=== PATIENT | male | born 1955 | race Caucasian/White ===

== ENCOUNTER 2023-04-16 00:09 | Inpatient (IN) | payer MEDICARE ==
[2023-04-16] MEDS ORDERED: ACETAMINOPHEN TAB 500 MG TAB PO STA (00:43)
[2023-04-16] MEDS ORDERED: SODIUM CHLORIDE 0.9% 1,000 ML IV STA ×2 (00:43)
[2023-04-16 01:15] LABS: Basophils % (A) 0 %; Eosinophils # (A) 0.1 k/uL (0-0.7); Eosinophils % (A) 1 %; HCT 37.5 % (39.0-53.0); HGB 12.4 gm/dL (13.0-17.5); Lymphocytes # (A) 0.4 k/uL (1.0-4.8); Lymphocytes % (A) 5 %; MCH 32.8 pg (25.0-35.0); MCHC 33.2 g/dL (31.0-37.0); MCV 98.9 fL (80.0-100.0); Mean Platelet Volume 8.9; Monocytes # (A) 0.4 k/uL (0-1.0); Monocytes % (A) 6 %; Neutrophils # (A) 6.8 k/uL (1.3-7.7); Neutrophils % (A) 87 %; Platelet Count 107 k/uL (150-450); RBC 3.79 m/uL (4.30-5.90); RDW 14.1 % (11.5-15.5); WBC 7.8 k/uL (3.8-10.6)
[2023-04-16 01:34] LABS: ALT 15 U/L (4-49); AST 30 U/L (17-59); African American GFR (CKD) >90 (>60 ml/min/1.73 sqM); Albumin 3.7 g/dL (3.5-5.0); Alkaline Phosphatase 144 U/L (38-126); Anion Gap 9 mmol/L; Blood Urea Nitrogen 8 mg/dL (9-20); C Reactive Protein 2.7 mg/dL (<1.0); Carbon Dioxide 30 mmol/L (22-30); Chloride 90 mmol/L (98-107); Glucose 111 mg/dL (74-99); Non-African American GFR(CKD) 82 (>60 ml/min/1.73 sqM); Sodium 129 mmol/L (137-145); Total Protein 8.3 g/dL (6.3-8.2)
[2023-04-16 01:58] LABS: Amorphous Sediment,Urine Rare /hpf; Appearance,Urine Clear (Clear); Bilirubin,Urine Negative (Negative); Blood,Urine Small (Negative); Color,Urine Yellow; Glucose,Urine (UA) Negative (Negative); Hyaline Casts,Urine 7 /lpf (0-2); Ketones,Urine Negative (Negative); Leukocyte Esterase,Urine Negative (Negative); Mucus,Urine Rare /hpf; Nitrite,Urine Negative (Negative); Protein,Urine 2+ (Negative); RBC,Urine 17 /hpf (0-5); Specific Gravity,Urine 1.018 (1.001-1.035); Squamous Epithelial Cell,Urine 1 /hpf (0-4); WBC,Urine 1 /hpf (0-5)
[2023-04-16 01:59] LABS: Erythrocyte Sedimentation Rate 48 mm/hr (0-15)
[2023-04-16] MEDS ORDERED: IPRATROPIUM-ALBUTEROL 3 ML NEB INHALATION STA (02:12)
[2023-04-16] MEDS ORDERED: AMPICILLIN-SULBACTAM 3 GM in SODIUM CHLORIDE 0.9% 100 ML IVPB STA (02:18)
[2023-04-16] MEDS ORDERED: VANCOMYCIN IV PER PHARMACY 1 EACH MISC MISCELLANE PRN ×2 (02:18→05:56)
[2023-04-16] MEDS ORDERED: VANCOMYCIN 2,000 MG in SODIUM CHLORIDE 0.9% 500 ML 500 ML IVPB STA (02:26)
--- NOTE | 2023-04-16 03:12 | ED ---
General Adult HPI - General Chief complaint: Wound/Laceration Stated complaint: Infected Wound Left Leg Time Seen by Provider: 04/16/23 00:20 Source: EMS Mode of arrival: EMS Limitations: no limitations - History of Present Illness Initial comments: 67-year-old male with past medical history of COPD on 4 L home O2, chronic lower extremity wounds, A. fib on anticoagulation, hypertension who presents emergency department with some altered mental status. EMS and patient does provide the history. Patient is from [facility] however is in the area renting a cottage with his . called EMS because the patient had a fever. He does have chronic lower extremity wounds which have been weeping. States that he was just recently hospitalized a month ago for the wounds. Denies any current antibiotic use. states that he has been somewhat confused however he does answer questions appropriately for me. He denies any trauma. Did not t lay anything for the fever before coming into the emergency department. Denies any abdominal pain. No changes in his bowel or bladder habits. Denies headaches. Denies a cough or shortness of breath. No other alleviating, precipitating or modifying factors - Related Data Allergies Allergy/AdvReac Type Severity Reaction Status Date / Time lisinopril Allergy Cough Verified 04/16/23 02:28 Review of Systems ROS Statement: Those systems with pertinent positive or pertinent negative responses have been documented in the HPI. ROS Other: All systems not noted in ROS Statement are negative. Past Medical History Past Medical History: Atrial Fibrillation, COPD, Hyperlipidemia, Hypertension Past Surgical History: No Surgical Hx Reported Past Psychological History: No Psychological Hx Reported Smoking Status: Never smoker Past Alcohol Use History: None Reported Past Drug Use History: Marijuana General Exam Limitations: altered mental status General appearance: alert, in no apparent distress Head exam: Present: atraumatic, normocephalic, normal inspection Eye exam: Present: normal appearance, PERRL, EOMI. Absent: scleral icterus, conjunctival injection, periorbital swelling ENT exam: Present: mucous membranes dry Neck exam: Present: normal inspection. Absent: tenderness, meningismus, lymphadenopathy Respiratory exam: Present: wheezes Cardiovascular Exam: Present: regular rate, normal rhythm, normal heart sounds. Absent: systolic murmur, diastolic murmur, rubs, gallop, clicks GI/Abdominal exam: Present: soft, normal bowel sounds. Absent: distended, tenderness, guarding, rebound, rigid Extremities exam: Present: other (Bilateral lower extremities have significant swelling and brawny edema. There is an area of ulceration on the left posterior calf which is weeping. Extremities are malodorous. Patient does have less than 3 second cap refill) Neurological exam: Present: alert Psychiatric exam: Present: normal affect, normal mood Course Vital Signs 04/16/23 04/16/23 04/16/23 00:15 01:34 01:47 Temperature 101.2 F H 99.8 F H Pulse Rate 98 Respiratory 18 26 H Rate Blood Pressure 147/92 O2 Sat by Pulse 98 98 Oximetry 04/16/23 04/16/23 04/16/23 02:00 02:10 02:23 Temperature Pulse Rate 107 H 117 H 113 H Respiratory Rate Blood Pressure O2 Sat by Pulse Oximetry 04/16/23 04/16/23 04/16/23 02:55 04:05 04:56 Temperature Pulse Rate 110 H 96 103 H Respiratory 20 18 Rate Blood Pressure 124/78 O2 Sat by Pulse 97 97 Oximetry 04/16/23 04/16/23 04/16/23 05:06 05:11 06:10 Temperature 98.7 F 98.4 F Pulse Rate 98 111 H 98 Respiratory 18 18 Rate Blood Pressure 124/84 116/86 O2 Sat by Pulse 97 97 Oximetry Medical Decision Making - Medical Decision Making Was pt. sent in by a medical professional or institution (WAYNE Uriarte, HEALTH AND SAFETY SPECIALIST, urgent ca re, hospital, or fdc...) When possible be specific @ -No Did you speak to anyone other than the patient for history (EMS, parent, family, police, friend...)? What history was obtained from this source @ -EMS Did you review nursing and triage notes (agree or disagree)? Why? @ -I reviewed and agree with nursing and triage notes Were old charts reviewed (outside hosp., previous admission, EMS record, old EKG, old radiological studies, urgent care reports/EKG's, fdc records)? Report findings @ -No old charts were reviewed Differential Diagnosis (chest pain, altered mental status, abdominal pain women, abdominal pain men, vaginal bleeding, weakness, fever, dyspnea, syncope, headache, dizziness, GI bleed, back pain, seizure, CVA, palpatations, mental health, musculoskeletal)? @ -Differential Fever: Pneumonia, viral URI, endocarditis, myocarditis, pericarditis, otitis, sinusitis, peritonsillar Abscess, retropharyngeal Abscess, epiglottitis, peritonitis, appendicitis, Madeline cystitis, diverticulitis, hepatitis, colitis, UTI, PID, TOA, pyelonephritis, prostatitis, epididymitis, meningitis, encephal itis, pulmonary embolism, CVA, thyroid storm, pancreatitis, adrenal crisis, cavernous sinus thrombosis, this is not meant to be an all-inclusive list. EKG interpreted by me (3pts min.). @ - EKG done at 1218 demonstrates A. fib with a rate of 95. QRS 98. QTC 404. No acute ST segment elevations or depressions Repeat EKG done at 1:45 AM demonstrates A. fib with rate of 116. QRS is 78. QTC of 363. No acute ST segment elevations X-rays interpreted by me (1pt min.). @ -Yes and demonstrates no acute intrathoracic process CT interpreted by me (1pt min.). @ -None done U/S interpreted by me (1pt. min.). @ -None done What testing was considered but not performed or refused? (CT, X-rays, U/S, labs)? Why? @ -None What meds were considered but not given or refused? Why? @ -Pain meds were offered however patient refused Did you discuss the management of the patient with other professionals (professionals i.e. , PA, HEALTH AND SAFETY SPECIALIST, lab, RT, psych nurse, home health care social worker, scale clerk, teacher, bank operations officer, bottle caser)? Give summary @ -Discussed the patient's care with Dr. Moore who agreed to admit the patient Was smoking cessation discussed for >3mins.? @ -No Was critical care preformed (if so, how long)? @ -No Were there social determinants of health that impacted care today? How? (Homelessness, low income, unemployed, alcoholism, drug addiction, transportation, low edu. Level, literacy, decrease access to med. care, snf, rehab)? @ -No Was there de-escalation of care discussed even if they declined (Discuss DNR or withdrawal of care, Hospice)? DNR status @ -No What co-morbidities impacted this encounter? (DM, HTN, Smoking, COPD, CAD, Cancer, CVA, ARF, Chemo, Hep., AIDS, mental health diagnosis, sleep apnea, morbid obesity)? @ -A. fib on anticoagulation, chronic venous stasis, COPD on 4 L home O2 Was patient admitted / discharged? Hospital course, mention meds given and route, prescriptions, significant lab abnormalities, going to OR and other pertinent info. @ -On arrival patient was placed into room 9. A thorough history and physical exam was performed. IV was established laboratory studies were conducted. Patient notes no other her symptoms other than his chronic lower extremity wounds. Chest x-ray demonstrates no acute process. I did recommend admission for antibiotics and antipyretics for which the patient was agreeable to. Patient was given Unasyn and Vanco for antibiotics. He will be admitted to Dr. Moore who agreed to admit the patient. Patient taken to the floor in stable condition Undiagnosed new problem with uncertain prognosis? @ -No Drug Therapy requiring intensive monitoring for toxicity (Heparin, Nitro, Insulin, Cardizem)? @ -No Were any procedures done? @ -No Diagnosis/symptom? @ -Acute pyrexia, acute cellulitis bilateral lower extremities Acute, or Chronic, or Acute on Chronic? @ -Acute on chronic Uncomplicated (without systemic symptoms) or Complicated (systemic symptoms)? @ -Complicated Side effects of treatment? @ -ALLERGIC reaction Exacerbation, Progression, or Severe Exacerbation? @ -No Poses a threat to life or bodily function? How? (Chest pain, [place], [place], pneumonia, PE, COPD, DKA, ARF, appy, cholecystitis, CVA, Diverticulitis, Homicidal, Suicidal, threat to staff... and all critical care pts) @ -No - Lab Data Result diagrams: 04/16/23 00:50 04/16/23 00:50 Lab Results 04/16/23 04/16/23 04/16/23 Range/Units 00:50 00:50 00:50 WBC 7.8 (3.8-10.6) k/uL RBC 3.79 L (4.30-5.90) m/uL Hgb 12.4 L (13.0-17.5) gm/dL Hct 37.5 L (39.0-53.0) % MCV 98.9 (80.0-100.0) fL MCH 32.8 (25.0-35.0) pg MCHC 33.2 (31.0-37.0) g/dL RDW 14.1 (11.5-15.5) % Plt Count 107 L (150-450) k/uL MPV 8.9 Neutrophils % 87 % Lymphocytes % 5 % Monocytes % 6 % Eosinophils % 1 % Basophils % 0 % Neutrophils # 6.8 (1.3-7.7) k/uL Lymphocytes # 0.4 L (1.0-4.8) k/uL Monocytes # 0.4 (0-1.0) k/uL Eosinophils # 0.1 (0-0.7) k/uL Basophils # 0.0 (0-0.2) k/uL ESR 48 H (0-15) mm/hr Sodium 129 L (137-145) mmol/L Potassium 4.0 (3.5-5.1) mmol/L Chloride 90 L (98-107) mmol/L Carbon Dioxide 30 (22-30) mmol/L Anion Gap 9 mmol/L BUN 8 L (9-20) mg/dL Creatinine 0.95 (0.66-1.25) mg/dL Est GFR (CKD-EPI)AfAm >90 (>60 ml/min/1.73 sqM) Est GFR (CKD-EPI)NonAf 82 (>60 ml/min/1.73 sqM) Glucose 111 H (74-99) mg/dL Lactic Ac Sepsis Rflx Plasma Lactic Acid Keith 2.4 H* (0.7-2.0) mmol/L Calcium 9.0 (8.4-10.2) mg/dL Total Bilirubin 2.0 H (0.2-1.3) mg/dL AST 30 (17-59) U/L ALT 15 (4-49) U/L Alkaline Phosphatase 144 H (38-126) U/L C-Reactive Protein 2.7 H (<1.0) mg/dL Total Protein 8.3 H (6.3-8.2) g/dL Albumin 3.7 (3.5-5.0) g/dL Urine Color Urine Appearance (Clear) Urine pH (5.0-8.0) Ur Specific Gorman (1.001-1.035) Urine Protein (Negative) Urine Glucose (UA) (Negative) Urine Ketones (Negative) Urine Blood (Negative) Urine Nitrite (Negative) Urine Bilirubin (Negative) Urine Urobilinogen (<2.0) mg/dL Ur Leukocyte Esterase (Negative) Urine RBC (0-5) /hpf Urine WBC (0-5) /hpf Ur Squamous Epith Cells (0-4) /hpf Amorphous Sediment (None) /hpf Hyaline Casts (0-2) /lpf Urine Mucus (None) /hpf 04/16/23 04/16/23 Range/Units 01:29 02:03 WBC (3.8-10.6) k/uL RBC (4.30-5.90) m/uL Hgb (13.0-17.5) gm/dL Hct (39.0-53.0) % MCV (80.0-100.0) fL MCH (25.0-35.0) pg MCHC (31.0-37.0) g/dL RDW (11.5-15.5) % Plt Count (150-450) k/uL MPV Neutrophils % % Lymphocytes % % Monocytes % % Eosinophils % % Basophils % % Neutrophils # (1.3-7.7) k/uL Lymphocytes # (1.0-4.8) k/uL Monocytes # (0-1.0) k/uL Eosinophils # (0-0.7) k/uL Basophils # (0-0.2) k/uL ESR (0-15) mm/hr Sodium (137-145) mmol/L Potassium (3.5-5.1) mmol/L Chloride (98-107) mmol/L Carbon Dioxide (22-30) mmol/L Anion Gap mmol/L BUN (9-20) mg/dL Creatinine (0.66-1.25) mg/dL Est GFR (CKD-EPI)AfAm (>60 ml/min/1.73 sqM) Est GFR (CKD-EPI)NonAf (>60 ml/min/1.73 sqM) Glucose (74-99) mg/dL Lactic Ac Sepsis Rflx Y Plasma Lactic Acid Keith (0.7-2.0) mmol/L Calcium (8.4-10.2) mg/dL Total Bilirubin (0.2-1.3) mg/dL AST (17-59) U/L ALT (4-49) U/L Alkaline Phosphatase (38-126) U/L C-Reactive Protein (<1.0) mg/dL Total Protein (6.3-8.2) g/dL Albumin (3.5-5.0) g/dL Urine Color Yellow Urine Appearance Clear (Clear) Urine pH 7.0 (5.0-8.0) Ur Specific Gorman 1.018 (1.001-1.035) Urine Protein 2+ H (Negative) Urine Glucose (UA) Negative (Negative) Urine Ketones Negative (Negative) Urine Blood Small H (Negative) Urine Nitrite Negative (Negative) Urine Bilirubin Negative (Negative) Urine Urobilinogen 6.0 (<2.0) mg/dL Ur Leukocyte Esterase Negative (Negative) Urine RBC 17 H (0-5) /hpf Urine WBC 1 (0-5) /hpf Ur Squamous Epith Cells 1 (0-4) /hpf Amorphous Sediment Rare H (None) /hpf Hyaline Casts 7 H (0-2) /lpf Urine Mucus Rare H (None) /hpf Disposition Clinical Impression: Cellulitis, leg, Fever, Sepsis Disposition: ADMITTED IP TO THIS [facility] Condition: Serious Is patient prescribed a controlled substance at d/c from ED?: No Time of Disposition: 03:39 Decision to Admit Reason: Admit from EC Decision Date: 04/16/23 Decision Time: 03:39
[2023-04-16] MEDS ORDERED: NALOXONE 0.4 MG/ML 1 ML VIAL IV PRN (03:39)
[2023-04-16] MEDS ORDERED: MORPHINE SULFATE 4 MG/ML SYRINGE IV PRN (03:39)
[2023-04-16] MEDS ORDERED: IBUPROFEN 400 MG TAB PO PRN (03:39)
[2023-04-16] MEDS: IPRATROPIUM-ALBUTEROL 3 ML NEB INHALATION SCH ×3 (04:54→12:14)
[2023-04-16] MEDS: ACETAMINOPHEN TAB 325 MG TAB PO PRN ×2 (04:54→21:28)
[2023-04-16] MEDS: METOPROLOL SUCCINATE (ER) 25 MG TAB.ER.24H PO SCH (06:12)
--- NOTE | 2023-04-16 06:15 | P.HPIM ---
History of Present Illness H&P Date: 04/16/23 Chief Complaint: Confusion 67-year-old male with A. fib, hypertension, COPD on 4 L nasal cannula Patient was brought into the hospital for evaluation due to confusion and fever he was brought in by the . At time of my evaluation she was not at bedside to assist with history. However the patient was wide awake alert, he denies any complaints at this time. He is not sure what happened and why he was brought into the hospital. They were camping in the cabin in [place] normally he lives in [place]. Patient denies any fevers or chills denies any headache denies any focal neuro deficits denies any chest pain or trouble breathing denies any abdominal pain nausea vomiting or GI bleeding. Patient denies any falls or head injury Patient recalls some of his medications he takes Lyrica, Percocet, Eliquis and metoprolol for A. fib. He could not remember the rest of his medication Per ED note, patient was confused upon arrival and was suspected to have cellulitis of his lower extremity for which she was admitted for IV antibiotics No other history is available to me at this time Patient denies tobacco smoking or illicit drugs or heavy alcohol review of systems Pertinent positives as noted in HPI. All other systems were reviewed and are negative on exam Constitutional: No acute distress, conversant, pleasant Eyes: Anicteric sclerae, moist conjunctiva, Pupils equal round reactive to light ENMT: NC/AT Oropharynx clear, no erythema, or exudates Neck: Supple, no masses, or JVD No carotid bruits No thyromegaly Lungs: Clear to auscultation Clear to percussion Normal respiratory effort, no accessory muscle use Cardiovascular: Heart irregular in rate and rhythm, No murmurs, gallops, or rubs No peripheral edema Abdominal: Soft Nontender, no guarding, rebound or rigidity Abdomen moving with respiration Normoactive bowel sounds No hepatomegaly, No splenomegaly No palpable mass No abdominal wall hernia noted Skin: Chronic skin changes over bilateral lower extremities with 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 I could not identify any draining wounds. There is erythema and warmth to the touch over bilateral lower extremity over the lower two thirds of bilateral legs with chronic dermatitis, one small abrasion left lower third of the leg with some dry blood around it Extremities: No digital cyanosis No clubbing Pedal pulses weak and symmetrical Radial pulses intact and symmetrical No calf tenderness Psychiatric: Alert and oriented to person, place and time Appropriate affect fair judgement Neuro Muscles Strength 5/5 in all 4 extremities Sensation to light touch grossly present throughout Cranial nerves II-XII grossly intact Lymphatics: no palpable cervical or supraclavicular lymph nodes Past Medical History Past Medical History: Atrial Fibrillation, COPD, Hyperlipidemia, Hypertension Past Surgical History: No Surgical Hx Reported Past Psychological History: No Psychological Hx Reported Smoking Status: Never smoker Past Alcohol Use History: None Reported Past Drug Use History: Marijuana Medications and Allergies Allergies Allergy/AdvReac Type Severity Reaction Status Date / Time lisinopril Allergy Cough Verified 04/16/23 02:28 Physical Exam Vitals: Vital Signs Temp Pulse Resp BP Pulse Ox 04/16/23 05:11 98.7 F 111 H 18 124/84 97 04/16/23 05:06 98 04/16/23 04:56 103 H 04/16/23 04:05 96 18 97 04/16/23 02:55 110 H 20 124/78 97 04/16/23 02:23 113 H 04/16/23 02:10 117 H 04/16/23 02:00 107 H 04/16/23 01:47 99.8 F H 04/16/23 01:34 26 H 98 04/16/23 00:15 101.2 F H 98 18 147/92 98 Intake and Output 04/15/23 04/15/23 04/16/23 14:59 22:59 06:59 Other: Weight 122.47 kg Results CBC & Chem 7: 04/16/23 00:50 04/16/23 00:50 Labs: Abnormal Lab Results - Last 24 Hours (Table) 04/16/23 04/16/23 04/16/23 Range/Units 00:50 00:50 00:50 RBC 3.79 L (4.30-5.90) m/uL Hgb 12.4 L (13.0-17.5) gm/dL Hct 37.5 L (39.0-53.0) % Plt Count 107 L (150-450) k/uL Lymphocytes # 0.4 L (1.0-4.8) k/uL ESR 48 H (0-15) mm/hr Sodium 129 L (137-145) mmol/L Chloride 90 L (98-107) mmol/L BUN 8 L (9-20) mg/dL Glucose 111 H (74-99) mg/dL Plasma Lactic Acid Keith 2.4 H* (0.7-2.0) mmol/L Total Bilirubin 2.0 H (0.2-1.3) mg/dL Alkaline Phosphatase 144 H (38-126) U/L C-Reactive Protein 2.7 H (<1.0) mg/dL Total Protein 8.3 H (6.3-8.2) g/dL Urine Protein (Negative) Urine Blood (Negative) Urine RBC (0-5) /hpf Amorphous Sediment (None) /hpf Hyaline Casts (0-2) /lpf Urine Mucus (None) /hpf 04/16/23 Range/Units 01:29 RBC (4.30-5.90) m/uL Hgb (13.0-17.5) gm/dL Hct (39.0-53.0) % Plt Count (150-450) k/uL Lymphocytes # (1.0-4.8) k/uL ESR (0-15) mm/hr Sodium (137-145) mmol/L Chloride (98-107) mmol/L BUN (9-20) mg/dL Glucose (74-99) mg/dL Plasma Lactic Acid Keith (0.7-2.0) mmol/L Total Bilirubin (0.2-1.3) mg/dL Alkaline Phosphatase (38-126) U/L C-Reactive Protein (<1.0) mg/dL Total Protein (6.3-8.2) g/dL Urine Protein 2+ H (Negative) Urine Blood Small H (Negative) Urine RBC 17 H (0-5) /hpf Amorphous Sediment Rare H (None) /hpf Hyaline Casts 7 H (0-2) /lpf Urine Mucus Rare H (None) /hpf Assessment and Plan Assessment: 67-year-old male was brought into the hospital for confusion and fever I discussed the case with the ED doctor and accepted the admission for lower extremity cellulitis for IV antibiotics with anticipated length of stay more than 2 midnights Acute metabolic encephalopathy Rule out underlying infectious process suspected cellulitis Follow-up cultures Vancomycin dosing by pharmacy Tylenol for fever Pain control with Percocet home medication Continue with bladder cuff or peripheral neuropathy Patient has established care with outpatient podiatry Patient also has established care with outpatient vascular surgery Lactic acidosis 2.4 continue to monitor IV fluid hydration with normal saline 1 30 mL per hour, status post 1 L bolus Elevated CRP 2.7 elevated ESR 48 Hyponatremia Sodium 129 Renal function otherwise unremarkable BUN 8 creatinine 0.9 potassium 4 Dictated IV fluid hydration with normal saline A. fib on Eliquis Continue with metoprolol 25 mg daily Continue with Eliquis 5 mg twice a day COPD compensated Chronic hypoxic respiratory failure on 4 L nasal cannula Continue supplemental oxygen as needed Symbicort twice a day DuoNeb's when necessary and scheduled Fall precautions PT evaluation Full code DVT prophylaxis on Eliquis for A. fib
[2023-04-16] MEDS ORDERED: SODIUM CHLORIDE 0.9% 1,000 ML IV ONE (08:14)
[2023-04-16] MEDS: SYMBICORT 160-4.5 MCG INHALER INHALATION SCH ×2 (08:28→20:52)
[2023-04-16] MEDS: APIXABAN 5 MG TAB PO SCH ×2 (08:42→21:28)
[2023-04-16 08:55] LABS: African American GFR (CKD) >90 (>60 ml/min/1.73 sqM); Anion Gap 7 mmol/L; Blood Urea Nitrogen 9 mg/dL (9-20); Calcium 8.1 mg/dL (8.4-10.2); Carbon Dioxide 26 mmol/L (22-30); Chloride 96 mmol/L (98-107); Glucose 143 mg/dL (74-99); Non-African American GFR(CKD) 82 (>60 ml/min/1.73 sqM); Potassium 4.3 mmol/L (3.5-5.1); Sodium 129 mmol/L (137-145)
[2023-04-16] MEDS ORDERED: PREGABALIN 75 MG CAP PO SCH (09:00)
--- NOTE | 2023-04-16 10:06 | XR ---
EXAMINATION TYPE: XR chest 2V DATE OF EXAM: 04/16/2023 COMPARISON: None INDICATION: Cough, pain TECHNIQUE: Frontal and lateral views of the chest are obtained. FINDINGS: The heart size is enlarged. The pulmonary vasculature is normal. Mild left lower lobe infiltrate is present. Small left pleural effusion may be present.. IMPRESSION: 1. Left lower lobe infiltrate with possible small left pleural effusion. Correlate for pneumonia. Fol low-up is recommended.
[2023-04-16] MEDS: VANCOMYCIN 2,000 MG in SODIUM CHLORIDE 0.9% 500 ML 500 ML IVPB SCH ×2 (11:48→23:17)
[2023-04-16] MEDS: oxyCODONE-APAP 10-325MG 1 EACH TAB PO PRN ×3 (11:51→23:17)
[2023-04-16] MEDS: IPRATROPIUM-ALBUTEROL 3 ML NEB INHALATION PRN (15:40)
--- NOTE | 2023-04-16 17:34 | CA ---
Transthoracic Echo Report Name: Catrachito Harrell Age: 67 Gender: M : 1955 Exam Date: 04/16/2023 14:49 Exam Location: [facility] Ht (in): 73 Wt (lb): 270 Ordering Physician: Sruthi Price MD Attending/Referring Phys: [employer] Recapper Trinidad Gutierres RDCS Procedure CPT: Indications: HF, pleural effusion Cardiac Hx: Technical Quality: Technically difficult study Contrast 1: Lumason Total Dose (mL): 3 Contrast 2: Total Dose (mL): MEASUREMENTS (Male / Female) Normal Values 2D ECHO LV Diastolic Diameter PLAX 5.6 cm 4.2 - 5.9 / 3.9 - 5.3 cm LV Systolic Diameter PLAX 4.6 cm IVS Diastolic Thickness 1.4 cm 0.6 - 1.0 / 0.6 - 0.9 cm LVPW Diastolic Thickness 1.2 cm 0.6 - 1.0 / 0.6 - 0.9 cm LV Relative Wall Thickness 0.5 RV Internal Dim ED PLAX 4.5 cm LVOT Diameter 2.7 cm LA Systolic Diameter LX 4.9 cm 3.0 - 4.0 / 2.7 - 3.8 cm LA Volume 114.5 cm??? 18 - 58 / 22 - 52 cm??? M-MODE Aortic Root Diameter MM 3.8 cm MV E Point Septal Separation 1.8 cm DOPPLER AV Peak Velocity 280.7 cm/s AV Peak Gradient 31.5 mmHg AV Mean Velocity 193.2 cm/s AV Mean Gradient 17.2 mmHg AV Velocity Time Integral 62.2 cm LVOT Peak Velocity 79.7 cm/s LVOT Peak Gradient 2.5 mmHg AV Area Cont Eq pk 1.6 cm??? MV Area PHT 4.7 cm??? MV Deceleration Time 199.3 ms TR Peak Velocity 274.0 cm/s TR Peak Gradient 30.0 mmHg Right Ventricular Systolic Press 45.0 mmHg FINDINGS Left Ventricle Left ventricular ejection fraction is estimated at 30-35 %. Left ventricular cavity size normal. Mildly increased septal wall thickness. apical septal,anterior inferior anterior and lateral cohn hypokinesis Right Ventricle Severe right ventricular dilatation. Moderate pulmonary hypertension. Right ventricular systolic pressure estimated at 45 mm hg. moderate right ventricular hypertrophy. Right Atrium Right atrium not well visualized. Left Atrium Moderately increased left atrial diameter. Severely increased left atrial volume. Mildly increased left atrial area. Mitral Valve Mitral valve thickened. Mitral valve not well visualized. Aortic Valve Aortic valve sclerosis. Mild aortic stenosis with a peak gradient of 32 mmHg and a mean gradient of 17 mmHg. Tricuspid Valve Tricuspid valve not well visualized. Mild tricuspid regurgitation. Pulmonic Valve Pulmonic valve not well visualized. Pericardium Small pericardial effusion. Aorta Normal size aortic root and proximal ascending aorta. CONCLUSIONS Left ventricular ejection fraction 30-35% with mainly apical hypokinesis and sparing of the bases. Possible Takotsubo's cardiomyopathy. Moderate right ventricular dilation with moderate right ventricular hypertrophy. RVSP 45 Moderately dilated left atrium Mild aortic stenosis Mild tricuspid regurgitation Small pericardial effusion Previewed by: Dr. Marcus Miranda DO (Electronically Signed) Final Date: 16 April 2023 17:33
[2023-04-16] MEDS ORDERED: APIXABAN 5 MG TAB PO SCH (21:00)
[2023-04-16] MEDS: PREGABALIN 75 MG CAP PO SCH (21:27)
[2023-04-16] MEDS: ATORVASTATIN 40 MG TAB PO SCH (21:27)
[2023-04-16] MEDS: DULoxetine HCL 30 MG CAPSULE.DR PO SCH (21:27)
[2023-04-17 04:41] LABS: Basophils % (A) 0 %; Eosinophils % (A) 0 %; HCT 34.4 % (39.0-53.0); HGB 11.3 gm/dL (13.0-17.5); Lymphocytes % (A) 17 %; MCH 33.4 pg (25.0-35.0); MCV 101.4 fL (80.0-100.0); Macrocytosis Slight; Mean Platelet Volume 9.5; Monocytes # (A) 0.5 k/uL (0-1.0); Monocytes % (A) 8 %; Neutrophils # (A) 4.3 k/uL (1.3-7.7); Neutrophils % (A) 72 %; Platelet Count 106 k/uL (150-450); RBC 3.39 m/uL (4.30-5.90); RDW 14.1 % (11.5-15.5)
[2023-04-17 04:59] LABS: African American GFR (CKD) 84 (>60 ml/min/1.73 sqM); Anion Gap 5 mmol/L; Blood Urea Nitrogen 12 mg/dL (9-20); Calcium 8.4 mg/dL (8.4-10.2); Carbon Dioxide 28 mmol/L (22-30); Chloride 100 mmol/L (98-107); Glucose 121 mg/dL (74-99); Magnesium 1.6 mg/dL (1.6-2.3); Non-African American GFR(CKD) 73 (>60 ml/min/1.73 sqM); Potassium 4.3 mmol/L (3.5-5.1); Sodium 133 mmol/L (137-145)
[2023-04-17] MEDS: oxyCODONE-APAP 10-325MG 1 EACH TAB PO PRN ×3 (05:37→18:07)
[2023-04-17] MEDS: METOPROLOL SUCCINATE (ER) 25 MG TAB.ER.24H PO SCH (06:43)
[2023-04-17] MEDS: CYANOCOBALAMIN 500 MCG TAB PO SCH (08:35)
[2023-04-17] MEDS: PREGABALIN 75 MG CAP PO SCH ×2 (08:35→20:33)
[2023-04-17] MEDS: PANTOPRAZOLE 40 MG TABLET PO SCH (08:35)
[2023-04-17] MEDS: APIXABAN 5 MG TAB PO SCH ×2 (08:35→20:33)
[2023-04-17] MEDS: FUROSEMIDE 40 MG TAB PO SCH (08:36)
[2023-04-17] MEDS ORDERED: METOPROLOL SUCCINATE (ER) 25 MG TAB.ER.24H PO SCH (09:00)
[2023-04-17] MEDS: IPRATROPIUM-ALBUTEROL 3 ML NEB INHALATION PRN (09:00)
[2023-04-17] MEDS: SYMBICORT 160-4.5 MCG INHALER INHALATION SCH ×2 (09:00→19:47)
--- NOTE | 2023-04-17 11:10 | P.PN ---
Subjective Progress Note Date: 04/17/23 No new complaints today. Echo yesterday showed reduced EF with possible Takotsubo. Gen: awake, alert HEENT: normocephalic, atraumatic, good hearing acuity, moist mucous membranes Resp: good air exchange, breathing comfortably with no accessory muscle use CVS: good distal perfusion x 4, GI: soft, NTTP, ND : no SPT, no CVAT, lorenz catheter not present MSK: bilateral pitting edema superimposed on lymphedema and chronic dermis stasis changes, no clubbing Neuro: non-focal, moving all extremities Psych: cooperative, euthymic mood Assessment/plan: Vitals: afebrile, 129/89, HR 97, 98% on 4L NC Labs: CBC shows WBC of 6, Hgb 11.3, PLT 106; BMP with Na 133, BUN 12 Cr 1.05. LA 2.7-->1.4; BCx gram positive cocci in chains Images: Echo shows reduction of EF to 35% with possible Takotsubo CM Consultation: Cardiology consult pending Acute metabolic encephalopathy Gram Positive Bacteremia Left Lower Extremity Cellulitis - ID consulted - Continue vancomycin, follow trough for toxicity Chronic Systolic Heart Failure, EF 35% Hyponatremia Paroxysmal Atrial Fibrillation, rate controlled - continue lasix 40mg daily - cardiology consulted - continue apixaban - continue metoprolol 25mg XL daily COPD without exacerbation Chronic Respiratory Failure requiring 4L NC HTN HLD - continue duonebs PRN - continue symbicort - hold off on steroids Full code DVT prophylaxis on Eliquis for A. fib Objective - Vital Signs Vital signs: Vital Signs Temp 98.0 F 04/17/23 08:00 Pulse 80 04/17/23 09:14 Resp 18 04/17/23 08:00 BP 129/89 04/17/23 08:00 Pulse Ox 98 04/17/23 08:00 FiO2 Intake & Output 04/16/23 04/17/23 04/17/23 18:59 06:59 18:59 Intake Total 240 1495 Output Total 300 600 Balance -60 895 Weight 122.47 kg Intake: IV 20 Invasive Line 1 10 Invasive Line 2 10 Intake, IV Titration 500 Amount Vancomycin 2,000 mg In 500 Sodium Chloride 0.9% 500 ml 500 ml @ 167 mls/hr IVPB Q12H [facility] Rx#: [id number] Oral 240 975 Output: Urine 300 600 Other: Voiding Method Urinal Urinal Urinal # Voids 3 - Labs CBC & Chem 7: 04/17/23 03:39 04/17/23 03:34 Labs: Abnormal Lab Results - Last 24 Hours (Table) 04/16/23 04/16/23 04/16/23 Range/Units 09:55 13:33 18:02 RBC (4.30-5.90) m/uL Hgb (13.0-17.5) gm/dL Hct (39.0-53.0) % MCV (80.0-100.0) fL Plt Count (150-450) k/uL Sodium (137-145) mmol/L Glucose (74-99) mg/dL Plasma Lactic Acid Keith 5.7 H* 5.1 H* 4.2 H* (0.7-2.0) mmol/L 04/16/23 04/17/23 04/17/23 Range/Units 22:42 03:34 03:39 RBC 3.39 L (4.30-5.90) m/uL Hgb 11.3 L (13.0-17.5) gm/dL Hct 34.4 L (39.0-53.0) % MCV 101.4 H (80.0-100.0) fL Plt Count 106 L (150-450) k/uL Sodium 133 L (137-145) mmol/L Glucose 121 H (74-99) mg/dL Plasma Lactic Acid Keith 2.7 H* (0.7-2.0) mmol/L Microbiology - Last 24 Hours (Table) 04/16/23 00:49 Blood Culture Gram Stain - Preliminary Blood 04/16/23 00:30 Blood Culture Gram Stain - Preliminary Blood
[2023-04-17] MEDS: VANCOMYCIN 2,000 MG in SODIUM CHLORIDE 0.9% 500 ML 500 ML IVPB SCH (12:00)
--- NOTE | 2023-04-17 12:18 | P.CRDCN ---
History of Present Illness Consult date: 04/17/23 Consult reason: congestive heart failure Chief complaint: confusion History of present illness: History of present illness: Patient is a pleasant 67-year-old male with significant past medical history of paroxysmal atrial fibrillation, hypertension, Charcot mesha tooth, and COPD who presented to the emergency department with confusion and fevers 101.2 in ED. 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 Jason. He reports that he has been diagnosed with A. fib for approximately the past 1 year and has had some increased shortness of breath with that. He denies any tobacco use, however smokes marijuana, and drinks alcohol "too much" which he quantifies as 2-3 beers during the week and 4-5 drinks on the weekend. He does have left foot deformity that he relates to [id number]. He has had some increased swelling in his lower extremities and there was concern for possible cellulitis when he was in the emergency department. He does use a walker to get around and is not very active mostly due to his feet. He denies having any chest pain or pressure. He denies any history of heart attack or heart failure. Chest x-ray shows left lower lobe infiltrate with possible small left pleural effusion. EKG shows atrial fibrillation with RVR, 116 bpm. Echocardiogram 04/16/23 with eject ion fraction 3035% with mainly apical hypokinesis and sparing of the bases concerning for possible Takotsubo's cardiomyopathy, moderate right ventricular dilation and hypertrophy, RVSP 45, mild aortic stenosis, small pericardial effusion. He is feeling better today, denies any further confusion. Denies any chest pain or pressure. No dizziness or syncope. REVIEW OF SYSTEMS: No fever or chills. No cough or expectoration. No diaphoresis. Reports shortness of breath. Patient denies headache, dizziness, blurred vision, double vision. Patient denies any stomach discomfort. No nausea, vomiting. No hematochezia. No hematemesis. Denies any black stools or blood in his stools. Denies dysuria or hematuria. No muscle weakness or numbness. No chest pain or pressure. Reports numbness/tingling of bilat feet. PHYSICAL EXAMINATION: This is a 67-year-old male in no apparent distress at the time of my examination. HEENT: Head is atraumatic, normocephalic. Pupils are equal, round. Sclerae anicteric. Conjunctivae are clear. Mucous membranes of the mouth are moist. Neck is supple. There is no jugular venous distention. No carotid bruit is heard. CHEST EXAMINATION: Lungs are clear to auscultation. No chest wall tenderness is noted on palpation or with deep breathing. HEART EXAMINATION: Heart irregular rate and rhythm. S1, S2 heard. No murmurs, gallops or rub. ABDOMEN: Soft, nontender. Bowel sounds are heard. No organomegaly noted. EXTREMITIES: 2+ peripheral pulses, +1 edema BLE with redness and dry flaking skin, deformity of left foot. Right hand with swelling on posterior aspect. NEUROLOGIC EXAMINATION: Patient is awake, alert and oriented x3. IMPRESSION AND PLAN: Paroxysmal atrial fibrillation Altered mental status, likely related to febrile illness Lower extremity edema Lower extremity cellulitis Acute systolic heart failure Cardiomyopathy possibly related to Takotsubo's cardiomyopathy versus atrial fibrillation versus alcohol use ETOH abuse PLAN: Echocardiogram reviewed with patient concerning for systolic heart failure, reviewed that cardiomyopathy may be related to Takotsubo's cardiomyopathy versus atrial fibrillation versus alcohol use. He was advised to decrease alcohol intake. Continue with metoprolol. Recommend recovering from infection prior to further optimizing heart failure medications. Continue anticoagulation for stroke risk reduction. Consider stress testing or heart catheterization as an outpatient if persistent low EF. Okay to discharge home from cardiology standpoint. Follow-up with his cardiology office in 1 week. I am dictating on behalf of Dr. Marcus Miranda's history/physical and assessment/plan. Past Medical History Past Medical History: Atrial Fibrillation, COPD, Hyperlipidemia, Hypertension History of Any Multi-Drug Resistant Organisms: MRSA Date of last positivie culture/infection: 2019 MDRO Source:: BLE Past Surgical History: No Surgical Hx Reported Past Psychological History: No Psychological Hx Reported Smoking Status: Never smoker Past Alcohol Use History: None Reported Past Drug Use History: Marijuana Medications and Allergies Home Medications Medication Instructions Recorded Confirmed Type Apixaban [Eliquis] 5 mg PO BID 04/16/23 04/16/23 History Atorvastatin [Lipitor] 40 mg PO HS 04/16/23 04/16/23 History DULoxetine HCL [Cymbalta] 30 mg PO HS 04/16/23 04/16/23 History EPINEPHrine (Auto Inject) [Epipen] 0.3 mg IM ONCE PRN 04/16/23 04/16/23 History Furosemide [Lasix] 40 mg PO DAILY 04/16/23 04/16/23 History Metoprolol Succinate (ER) [Toprol 25 mg PO DAILY 04/16/23 04/16/23 History Xl] Pantoprazole [Protonix] 40 mg PO DAILY 04/16/23 04/16/23 History Pregabalin [Lyrica] 150 mg PO BID 04/16/23 04/16/23 History Vitamin B-12(Unknown Dose) 1 tab PO DAILY 04/16/23 04/16/23 History oxyCODONE-APAP 10-325MG [Percocet 1 tab PO QID 04/16/23 04/16/23 History 10-325 mg] Allergies Allergy/AdvReac Type Severity Reaction Status Date / Time bee venom protein (honey bee) Allergy Anaphylaxis Verified 04/16/23 11:49 lisinopril AdvReac Cough Verified 04/16/23 11:49 tramadol [From Ultram] AdvReac Nausea & Verified 04/16/23 11:49 Vomiting Physical Exam Vitals: Vital Signs Temp Pulse Pulse Pulse Resp BP BP 04/17/23 09:14 80 04/17/23 09:00 76 04/17/23 08:00 98.0 F 97 18 129/89 04/17/23 04:00 97.7 F 78 15 132/88 04/16/23 23:32 98 F 92 18 114/78 04/16/23 20:00 99.2 F 93 20 124/83 04/16/23 17:29 87 87 20 137/80 04/16/23 15:49 51 L 04/16/23 15:40 55 L 04/16/23 15:32 99.5 F 85 20 120/87 04/16/23 14:03 85 19 123/89 04/16/23 13:05 95 19 116/77 04/16/23 12:24 82 04/16/23 12:14 92 Pulse Ox 04/17/23 09:14 04/17/23 09:00 04/17/23 08:00 98 04/17/23 04:00 99 04/16/23 23:32 97 04/16/23 20:00 99 04/16/23 17:29 99 04/16/23 15:49 04/16/23 15:40 04/16/23 15:32 96 04/16/23 14:03 97 04/16/23 13:05 95 04/16/23 12:24 04/16/23 12:14 Intake and Output 04/16/23 04/17/23 04/17/23 22:59 06:59 14:59 Intake Total 260 1475 Output Total 300 600 Balance -40 875 Intake: IV 20 Invasive Line 1 10 Invasive Line 2 10 Intake, IV Titration 500 Amount Vancomycin 2,000 mg In 500 Sodium Chloride 0.9% 500 ml 500 ml @ 167 mls/hr IVPB Q12H [facility] Rx#: [id number] Oral 240 975 Output: Urine 300 600 Other: Voiding Method Urinal Urinal # Voids 3 Weight 122.47 kg Results 04/17/23 03:39 04/17/23 03:34 CBC 04/17/23 Range/Units 03:39 WBC 6.0 (3.8-10.6) k/uL RBC 3.39 L (4.30-5.90) m/uL Hgb 11.3 L (13.0-17.5) gm/dL Hct 34.4 L (39.0-53.0) % Plt Count 106 L (150-450) k/uL Comprehensive Metabolic Panel 04/17/23 Range/Units 03:34 Sodium 133 L (137-145) mmol/L Potassium 4.3 (3.5-5.1) mmol/L Chloride 100 (98-107) mmol/L Carbon Dioxide 28 (22-30) mmol/L BUN 12 (9-20) mg/dL Creatinine 1.05 (0.66-1.25) mg/dL Glucose 121 H (74-99) mg/dL Calcium 8.4 (8.4-10.2) mg/dL Current Medications Generic Name Dose Route Start Last Admin Trade Name Freq PRN Reason Stop Dose Admin Acetaminophen 650 mg 04/16/23 03:39 04/16/23 21:28 Acetaminophen Tab 325 Mg Tab PO 650 mg Q6HR PRN Administration Mild Pain or Fever > 100.5 Albuterol/Ipratropium 3 ml 04/16/23 06:03 04/17/23 09:00 Ipratropium-Albuterol 3 Ml Neb INHALATION 3 ml RT-QID PRN Administration Shortness Of Breath Or Wheezing Apixaban 5 mg 04/16/23 09:00 04/17/23 08:35 Apixaban 5 Mg Tab PO 5 mg BID [facility] Administration Protocol Atorvastatin Calcium 40 mg 04/16/23 21:00 04/16/23 21:27 Atorvastatin 40 Mg Tab PO 40 mg HS [facility] Administration Budesonide/Formoterol Fumarate 2 puff 04/16/23 08:00 04/17/23 09:00 Symbicort 160-4.5 Mcg Inhaler INHALATION 2 puff RT-BID [facility] Administration Cyanocobalamin 500 mcg 04/17/23 09:00 04/17/23 08:35 Cyanocobalamin 500 Mcg Tab PO 500 mcg DAILY [facility] Administration Duloxetine HCl 30 mg 04/16/23 21:00 04/16/23 21:27 Duloxetine Hcl 30 Mg Capsule.Dr PO 30 mg HS [facility] Administration Furosemide 40 mg 04/17/23 09:00 04/17/23 08:36 Furosemide 40 Mg Tab PO Not Given DAILY [facility] Vancomycin HCl 2,000 mg/ 500 mls @ 167 mls/hr 04/16/23 12:00 04/16/23 23:17 Sodium Chloride IVPB 167 mls/hr Q12H [facility] Administration Metoprolol Succinate 25 mg 04/16/23 07:00 04/17/23 06:43 Metoprolol Succinate (Er) 25 Mg Tab.Er.24h PO 25 mg DAILY@0700 [facility] Administration Miscellaneous Information 1 each 04/18/23 11:00 Vancomycin Trough Due 1 Each Misc MISCELLANE 04/18/23 11:01 ONCE ONE Morphine Sulfate 4 mg 04/16/23 03:39 04/16/23 21:31 Morphine Sulfate 4 Mg/Ml Syringe IV 4 mg Q4HR PRN Administration Severe Pain (Scale 7 to 10) Naloxone HCl 0.2 mg 04/16/23 03:39 Naloxone 0.4 Mg/Ml 1 Ml Vial IV Q2M PRN Opioid Reversal Oxycodone/Acetaminophen 1 each 04/16/23 06:03 04/17/23 05:37 Oxycodone-Apap 10-325mg 1 Each Tab PO 1 each Q6HR PRN Administration Pain Pantoprazole Sodium 40 mg 04/17/23 09:00 04/17/23 08:35 Pantoprazole 40 Mg Tablet PO 40 mg DAILY [facility] Administration Pregabalin 150 mg 04/16/23 21:00 04/17/23 08:35 Pregabalin 75 Mg Cap PO 150 mg BID [facility] Administration Intake and Output 04/16/23 04/17/23 04/17/23 22:59 06:59 14:59 Intake Total 260 1475 Output Total 300 600 Balance -40 875 Intake: IV 20 Invasive Line 1 10 Invasive Line 2 10 Intake, IV Titration 500 Amount Vancomycin 2,000 mg In 500 Sodium Chloride 0.9% 500 ml 500 ml @ 167 mls/hr IVPB Q12H [facility] Rx#: [id number] Oral 240 975 Output: Urine 300 600 Other: Voiding Method Urinal Urinal # Voids 3 Weight 122.47 kg 04/17/23 03:39 04/17/23 03:34
[2023-04-17] MEDS: DULoxetine HCL 30 MG CAPSULE.DR PO SCH (20:33)
[2023-04-17] MEDS: ATORVASTATIN 40 MG TAB PO SCH (20:33)
--- NOTE | 2023-04-17 23:38 | P.CONS ---
History of Present Illness - Reason for Consult Consult date: 04/17/23 - History of Present Illness Patient is a 67-year-old male with a past medical history significant for atrial fibrillation COPD hypertension hyperlipidemia did have a Charcot foot and nonhealing wound to the left foot patient presenting to [facility] ER yesterday morning for evaluation of mental status changes after the patient did have a fever chronic venous stasis dermatitis and a wound to the plantar aspect of the left foot which was almost healed. He did have some drainage recently with July the patient has been evaluated on arrival to the ER patient did have a fever of 101.2 F patient was tachycardic no significant hypoxemia patient did have a normal white count creatinine 0.96 lactic acid was 2 patient did have a negative UA chest x-ray left lower lobe infiltrate with possible small effusion correlate for pneumonia patient is currently being treated with vancomycin blood cultures came back positive with gram-positive cocci prompting this infectious disease consultation, patient Denies having any headache no chest pain shortness of breath or cough no nausea vomiting abdominal pain or diarrhea denies having any urinary symptoms he did have a chronic swelling to the lower extremity Charcot deformity to the left foot and did have a previous history of ulcer to the left foot apparently was healed no significant drainage Past Medical History Past Medical History: Atrial Fibrillation, COPD, Hyperlipidemia, Hypertension History of Any Multi-Drug Resistant Organisms: MRSA Year Discovered:: 2019 MDRO Source:: BLE Past Surgical History: No Surgical Hx Reported Past Psychological History: No Psychological Hx Reported Smoking Status: Never smoker Past Alcohol Use History: None Reported Past Drug Use History: Marijuana Medications and Allergies Home Medications Medication Instructions Recorded Confirmed Type Apixaban [Eliquis] 5 mg PO BID 04/16/23 04/16/23 History Atorvastatin [Lipitor] 40 mg PO HS 04/16/23 04/16/23 History DULoxetine HCL [Cymbalta] 30 mg PO HS 04/16/23 04/16/23 History EPINEPHrine (Auto Inject) [Epipen] 0.3 mg IM ONCE PRN 04/16/23 04/16/23 History Furosemide [Lasix] 40 mg PO DAILY 04/16/23 04/16/23 History Metoprolol Succinate (ER) [Toprol 25 mg PO DAILY 04/16/23 04/16/23 History Xl] Pantoprazole [Protonix] 40 mg PO DAILY 04/16/23 04/16/23 History Pregabalin [Lyrica] 150 mg PO BID 04/16/23 04/16/23 History Vitamin B-12(Unknown Dose) 1 tab PO DAILY 04/16/23 04/16/23 History oxyCODONE-APAP 10-325MG [Percocet 1 tab PO QID 04/16/23 04/16/23 History 10-325 mg] Allergies Allergy/AdvReac Type Severity Reaction Status Date / Time bee venom protein (honey bee) Allergy Anaphylaxis Verified 04/16/23 11:49 lisinopril AdvReac Cough Verified 04/16/23 11:49 tramadol [From Ultram] AdvReac Nausea & Verified 04/16/23 11:49 Vomiting Physical Exam Vitals: Vital Signs Temp Pulse Pulse Pulse Resp BP Pulse Ox 04/17/23 12:00 99 122/84 98 04/17/23 09:14 80 04/17/23 09:00 76 04/17/23 08:00 98.0 F 97 18 129/89 98 04/17/23 04:00 97.7 F 78 15 132/88 99 04/16/23 23:32 98 F 92 18 114/78 97 04/16/23 20:00 99.2 F 93 20 124/83 99 04/16/23 17:29 87 87 20 137/80 99 04/16/23 15:49 51 L 04/16/23 15:40 55 L Intake and Output 04/17/23 04/17/23 04/17/23 06:59 14:59 22:59 Intake Total 1475 Output Total 600 200 Balance 875 -200 Intake: Intake, IV Titration 500 Amount Vancomycin 2,000 mg In 500 Sodium Chloride 0.9% 500 ml 500 ml @ 167 mls/hr IVPB Q12H [facility] Rx#: [id number] Oral 975 Output: Urine 600 200 Other: Voiding Method Urinal # Voids 3 Results CBC & Chem 7: 04/17/23 03:39 04/17/23 03:34 Labs: Abnormal Lab Results - Last 24 Hours (Table) 04/16/23 04/16/23 04/17/23 Range/Units 18:02 22:42 03:34 RBC (4.30-5.90) m/uL Hgb (13.0-17.5) gm/dL Hct (39.0-53.0) % MCV (80.0-100.0) fL Plt Count (150-450) k/uL Sodium 133 L (137-145) mmol/L Glucose 121 H (74-99) mg/dL Plasma Lactic Acid Keith 4.2 H* 2.7 H* (0.7-2.0) mmol/L 04/17/23 Range/Units 03:39 RBC 3.39 L (4.30-5.90) m/uL Hgb 11.3 L (13.0-17.5) gm/dL Hct 34.4 L (39.0-53.0) % MCV 101.4 H (80.0-100.0) fL Plt Count 106 L (150-450) k/uL Sodium (137-145) mmol/L Glucose (74-99) mg/dL Plasma Lactic Acid Keith (0.7-2.0) mmol/L Microbiology - Last 24 Hours (Table) 04/16/23 00:30 Blood Culture Gram Stain - Preliminary Blood Blood Culture - Preliminary Beta Hemolytic Strep Group G 04/16/23 00:49 Blood Culture Gram Stain - Preliminary Blood Blood Culture - Preliminary Beta Hemolytic Strep Group G Assessment and Plan Plan: 1patient presented hospital with sepsis in this patient with fever tachycardia elevated lactic acid now with evidence of group G bacteremia source likely left foot wound infection and concern for possible deeper infection. 2we will obtain a CT of the left foot and lower extremity demonstrate evidence of any abscess and the need to be drained. 3discontinue vancomycin. 4blood cultures will be repeated document clearance of bacteremia check inflammatory markers. 5we will start patient on cefazolin 2 g every 8 hours while waiting for the work-up to be completed. We will follow on clinical condition and cultures to further adjust medication if needed Thank you for this consultation we will follow the patient along with you Dictation was produced using [employer] dictation software. please excuse any grammatical, word or spelling errors. Time with Patient: Greater than 30
[2023-04-18] MEDS: oxyCODONE-APAP 10-325MG 1 EACH TAB PO PRN ×4 (00:01→20:24)
[2023-04-18] MEDS: ceFAZolin 3 GM in SODIUM CHLORIDE 0.9% 100 ML IVPB SCH ×4 (00:01→23:25)
[2023-04-18] MEDS: METOPROLOL SUCCINATE (ER) 25 MG TAB.ER.24H PO SCH (06:11)
[2023-04-18] MEDS: SYMBICORT 160-4.5 MCG INHALER INHALATION SCH ×2 (07:57→21:30)
[2023-04-18 08:56] LABS: African American GFR (CKD) 86 (>60 ml/min/1.73 sqM); Anion Gap 8 mmol/L; Blood Urea Nitrogen 19 mg/dL (9-20); Calcium 8.6 mg/dL (8.4-10.2); Carbon Dioxide 23 mmol/L (22-30); Chloride 101 mmol/L (98-107); Glucose 102 mg/dL (74-99); Magnesium 1.8 mg/dL (1.6-2.3); Non-African American GFR(CKD) 75 (>60 ml/min/1.73 sqM); Potassium 4.2 mmol/L (3.5-5.1); Sodium 132 mmol/L (137-145)
--- NOTE | 2023-04-18 09:31 | P.PN ---
Subjective Progress Note Date: 04/18/23 No new complaints today. ID consult appreciated. Fever has resolved, confusion resolved. CT of the L Ext read is pending Gen: awake, alert HEENT: normocephalic, atraumatic, good hearing acuity, moist mucous membranes Resp: good air exchange, breathing comfortably with no accessory muscle use CVS: good distal perfusion x 4, GI: soft, NTTP, ND : no SPT, no CVAT, lorenz catheter not present MSK: bilateral pitting edema superimposed on lymphedema and chronic dermis stasis changes, no clubbing Neuro: non-focal, moving all extremities Psych: cooperative, euthymic mood Assessment/plan: Vitals: afebrile, 137/93, HR 88, 94% on room air Labs: Na 132, K 4.2; BCx beta hemolytic strep group G Images: Lower ext CT personally interpreted, soft tissue swelling with no abscess Consultation: Cardiology note reviewed, recover from infection prior to optimizing GDMT, outpatient ischemic work up advised Acute metabolic encephalopathy Strep Group G Bacteremia Left Lower Extremity Cellulitis - ID consulted - Continue cefazolin 2g q8h Chronic Systolic Heart Failure, EF 35% Hyponatremia Paroxysmal Atrial Fibrillation, rate controlled - continue lasix 40mg daily - cardiology consulted - continue apixaban - continue metoprolol 25mg XL daily COPD without exacerbation Chronic Respiratory Failure requiring 4L NC HTN HLD - continue duonebs PRN - continue symbicort - hold off on steroids Full code DVT prophylaxis on Eliquis for A. fib Objective - Vital Signs Vital signs: Vital Signs Temp 97.5 F L 04/18/23 08:06 Pulse 88 04/18/23 08:06 Resp 18 04/18/23 08:06 BP 137/93 04/18/23 08:06 Pulse Ox 94 L 04/18/23 08:06 FiO2 Intake & Output 04/17/23 04/18/23 04/18/23 18:59 06:59 18:59 Intake Total 120 Output Total 200 300 Balance -80 -300 Intake: Oral 120 Output: Gastric Drainage 0 Urine 200 300 Urine/Stool Mix 0 Emesis 0 Oral Regurgitation 0 Other: Voiding Method Urinal Urinal # Voids 2 # Bowel Movements 0 - Labs CBC & Chem 7: 04/17/23 03:39 04/18/23 07:30 Labs: Abnormal Lab Results - Last 24 Hours (Table) 04/18/23 Range/Units 07:30 Sodium 132 L (137-145) mmol/L Glucose 102 H (74-99) mg/dL Microbiology - Last 24 Hours (Table) 04/16/23 00:30 Blood Culture Gram Stain - Preliminary Blood Blood Culture - Preliminary Beta Hemolytic Strep Group G 04/16/23 00:49 Blood Culture Gram Stain - Preliminary Blood Blood Culture - Preliminary Beta Hemolytic Strep Group G
--- NOTE | 2023-04-18 09:32 | CT ---
EXAMINATION TYPE: CT lower leg LT w con CT DLP: 362.9 mGycm, Automated exposure control for dose reduction was used. DATE OF EXAM: 04/18/2023 9:18 AM COMPARISON: None CLINICAL INDICATION:Male, 67 years old with history of left foot abscess; PHH, Left leg abscess. TECHNIQUE: Axial images were obtained of the left lower extremity after the uneventful administration of 100 cc of Isovue-300 intravenously. Additional coronal and sagittal reformatted images and soft tissue and bone window were obtained for review. 3-D reconstruction was created on a separate worksta tion. FINDINGS: Limited evaluation due to lack of plain film. Small knee joint effusion. Tricompartmental j oint space narrowing with osteophytes involving the knee. Diffuse subcutaneous edema. No acute fractu re or dislocation. Degenerative changes of the ankle. Advanced degenerative changes of the first MTP joint. Advanced degenerative changes of the tarsal bones most prominent involving the midfoot hindfoo t with joint space narrowing, subchondral cystic changes, and spurring. No radiopaque foreign body. V ascular calcifications. Small plantar calcaneal enthesophyte. No rim-enhancing fluid collection to ramos ggest abscess. Diffuse atrophy of the musculature. Pes planus. IMPRESSION: 1. Diffuse subcutaneous edema and skin thickening without peripherally enhancing fluid collection to suggest abscess. Correlate for cellulitis. 2. Advanced degenerative changes of the midfoot and hindfoot. 3. Moderate osteoarthritic changes of the knee.
[2023-04-18] MEDS: CYANOCOBALAMIN 500 MCG TAB PO SCH (09:45)
[2023-04-18] MEDS: APIXABAN 5 MG TAB PO SCH ×2 (09:46→20:24)
[2023-04-18] MEDS: PREGABALIN 75 MG CAP PO SCH ×2 (09:46→20:24)
[2023-04-18] MEDS: FUROSEMIDE 40 MG TAB PO SCH (09:46)
[2023-04-18] MEDS: PANTOPRAZOLE 40 MG TABLET PO SCH (09:46)
[2023-04-18] MEDS ORDERED: VANCOMYCIN TROUGH DUE 1 EACH MISC MISCELLANE ONE (11:00)
[2023-04-18 11:10] LABS: Basophils % (A) 0 %; Eosinophils # (A) 0.2 k/uL (0-0.7); Eosinophils % (A) 3 %; HCT 35.7 % (39.0-53.0); HGB 11.7 gm/dL (13.0-17.5); Lymphocytes # (A) 1.1 k/uL (1.0-4.8); Lymphocytes % (A) 18 %; MCH 32.9 pg (25.0-35.0); MCHC 32.7 g/dL (31.0-37.0); MCV 100.9 fL (80.0-100.0); Macrocytosis Slight; Mean Platelet Volume 10.4; Monocytes # (A) 0.5 k/uL (0-1.0); Monocytes % (A) 9 %; Neutrophils # (A) 4.2 k/uL (1.3-7.7); Neutrophils % (A) 68 %; Platelet Count 121 k/uL (150-450); RBC 3.54 m/uL (4.30-5.90); RDW 14.6 % (11.5-15.5); WBC 6.2 k/uL (3.8-10.6)
[2023-04-18 11:13] LABS: C Reactive Protein 18.7 mg/dL (<1.0)
--- NOTE | 2023-04-18 15:21 | CDI ---
Documentation Clarification Form Date: 04/18/2023 02:52:31 PM From: Radha Alvarez RN, CCDS Admit Date: 04/16/2023 03:39:00 AM Patient Name: Catrachito Harrell Visit Number: [id number] Discharge Date: ATTENTION: The Clinical Documentation Specialists (CDI) and [facility] Coding Staff appreciate your assistance in clarifying documentation. Please respond to the clarification below the line at the bottom and electronically sign. The CDI & [facility] Coding staff will review the response and follow-up if needed. Please note: Queries are made part of the Legal Health Record. If you have any questions, please contact the author of this message via ITS. Dr. Sruthi Price The patient has sepsis documented in the ID Consult on 04/17/23. Based on this information and the findings below, is there an additional diagnosis that is clinically appropriate for this patient? 04/17 ID Consult: patient presented hospital with sepsis in this patient with fever tachycardia elevated lactic acid now with evidence of group G bacteremia source likely left foot wound infection and concern for possible deeper infection. History/Risk Factors: Atrial Fibrillation, COPD, Hyperlipidemia, Hypertension Clinical Indicators: 67-year-old male with fever does have chronic lower extremity wounds which have been weeping. Extremities are malodorous. 04/16 VS: 147/92 98 18 101.2 98 % 4/L NC 04/16 EKG done at 1:45 AM demonstrates A. fib with rate of 116. 9/9 WBC 7.8 Na+ 129 , Cl 90 Cr. 0.95 ESR 48, Lactic acid 2.4, 3.4, 5.7, 5.1, C-Reactive Protein 2.7 04/16 Blood cultures: Beta Hemolytic Strep Group G Treatment: .9NS IV Bolus 1,000 ML/HR X2 04/16 Kefzol 2 GM IVPB Q 8 HRS04/17-04/17 Unasyn 3 GM IVPB Once 04/16 Vancomycin HCL 2,000 MG IVPB Once then 167 IVPB Q 12/HR 04/16 -04/17 (PTD) Is there an additional diagnosis that is clinically appropriate for this patient? [x] Sepsis secondary to left lower extremity cellulitis, present on admission [ ] Sepsis ruled out [ ] Other, please specify [ ] Unable to determine SIRS Criteria: 2 or more of the following may indicate SIRS Temperature < 96.8F (36C) or > 101.0F (38.3C) Heart Rate > 90 bpm Respiratory Rate > 20 breaths/min or PaCO2 < 32 mmHg White Blood Cell Count > 12,000 or < 4,000 cells/mm3 or > 10% bands (Template Last Reviewed: August 2022) MTDD
--- NOTE | 2023-04-18 17:35 | P.PN ---
Subjective Progress Note Date: 04/18/23 Principal diagnosis: Streptococcal bacteremia left leg cellulitis Patient is a 67-year-old male with a past medical history significant for atrial fibrillation COPD hypertension hyperlipidemia did have a Charcot foot and nonhealing wound to the left foot patient presenting to [facility] ER for evaluation of mental status changes after the patient did have a fever chronic venous stasis dermatitis and a wound to the plantar aspect of the left foot, patient was noticed to be septic and did have a streptococcal bacteremia, the patient did have a CT of the left lower extremity did not show any abscess. On today's evaluation that is 04/18/2023, the patient is afebrile today, the patient is breathing comfortably , the patient denies having any chest pain or c ough, the patient denies nausea and vomiting no abdominal pain and no diarrhea, denies any pain to the left lower extremity redness has slightly decreased. Patient did have a white count of 6.2 daily 1.03, blood cultures with the group G strep beta hemolytic Objective - Vital Signs Vital signs: Vital Signs Temp 97.5 F L 04/18/23 08:06 Pulse 88 04/18/23 08:06 Resp 18 04/18/23 08:06 BP 137/93 04/18/23 08:06 Pulse Ox 94 L 04/18/23 08:06 FiO2 Intake & Output 04/17/23 04/18/23 04/18/23 18:59 06:59 18:59 Intake Total 120 Output Total 200 300 200 Balance -80 -300 -200 Intake: Oral 120 Output: Gastric Drainage 0 Urine 200 300 200 Urine/Stool Mix 0 Emesis 0 Oral Regurgitation 0 Other: Voiding Method Urinal Urinal Urinal # Voids 2 # Bowel Movements 0 - Exam GENERAL DESCRIPTION: An elderly male lying in bed in no distress RESPIRATORY SYSTEM: Unlabored breathing , decreased breath sounds at bases HEART: S1 S2 regular rate and rhythm , ABDOMEN: Soft , no tenderness EXTREMITIES: Left lower extremity did have some swelling dry scaly skin and redness no drainage - Labs CBC & Chem 7: 04/18/23 10:39 04/18/23 07:30 Labs: Abnormal Lab Results - Last 24 Hours (Table) 04/18/23 04/18/23 Range/Units 07:30 07:30 ESR 36 H (0-15) mm/hr Sodium 132 L (137-145) mmol/L Glucose 102 H (74-99) mg/dL Microbiology - Last 24 Hours (Table) 04/16/23 00:30 Blood Culture Gram Stain - Preliminary Blood Blood Culture - Preliminary Beta Hemolytic Strep Group G 04/16/23 00:49 Blood Culture Gram Stain - Preliminary Blood Blood Culture - Preliminary Beta Hemolytic Strep Group G Assessment and Plan (1) Cellulitis, leg Current Visit: Yes Status: Acute Code(s): L03.119 - CELLULITIS OF UNSPECIFIED PART OF LIMB SNOMED Code(s): 487791820 (2) Positive blood cultures Current Visit: Yes Status: Acute Code(s): R78.81 - BACTEREMIA SNOMED Code(s): 280658935 Plan: 1patient presented hospital with sepsis in this patient with fever tachycardia elevated lactic acid now with evidence of group G bacteremia source likely left foot wound infection and concern for possible deeper infection. 2patient did have CT of the left foot and lower extremity with no evidence of any abscess 3patient to continue with cefazolin 3 g every 8 hours while waiting for the work-up to be completed. Dictation was produced using [employer] dictation software. please excuse any grammatical, word or spelling errors. Time with Patient: Less than 30
[2023-04-18] MEDS: DULoxetine HCL 30 MG CAPSULE.DR PO SCH (20:24)
[2023-04-18] MEDS: ATORVASTATIN 40 MG TAB PO SCH (20:24)
[2023-04-19] MEDS: oxyCODONE-APAP 10-325MG 1 EACH TAB PO PRN ×4 (02:38→21:07)
--- NOTE | 2023-04-19 06:02 | PN ---
PROGRESS NOTE SUBJECTIVE: This gentleman has paroxysmal atrial fibrillation and also has had multiple wall motion abnormalities on the echocardiogram. He has a history of alcohol use. There is also a question of some cellulitis of lower extremities. He was seen by Dr. 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 He is already on anticoagulation. His rate is reasonably well controlled. He is resting comfortably. He also has probably mild aortic stenosis. I am recommending increase metoprolol succinate to 50 mg daily. OBJECTIVE: VITAL SIGNS: Stable. NECK: JVD 1 cm. No carotid bruit. CARDIOVASCULAR: Ejection systolic murmur at the base. LUNGS: Revealed diminished air entry. ABDOMEN: Soft. LOWER EXTREMITIES: Reveal diminished pulses. CENTRAL NERVOUS SYSTEM: Normal. 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 I am suggesting that he can be discharged whenever okay by admitting physician. We will increase metoprolol succinate and see how he does. Rate control is fairly decent at this time. MMODL / IJN: [id number] /
[2023-04-19 07:49] LABS: Basophils % (A) 0 %; Eosinophils # (A) 0.2 k/uL (0-0.7); Eosinophils % (A) 4 %; HCT 37.6 % (39.0-53.0); HGB 11.9 gm/dL (13.0-17.5); Lymphocytes # (A) 1.6 k/uL (1.0-4.8); Lymphocytes % (A) 29 %; MCH 32.2 pg (25.0-35.0); MCHC 31.5 g/dL (31.0-37.0); MCV 102.2 fL (80.0-100.0); Macrocytosis Slight; Mean Platelet Volume 9.3; Monocytes # (A) 0.3 k/uL (0-1.0); Monocytes % (A) 5 %; Neutrophils # (A) 3.3 k/uL (1.3-7.7); Neutrophils % (A) 60 %; Platelet Count 148 k/uL (150-450); RBC 3.68 m/uL (4.30-5.90); RDW 14.1 % (11.5-15.5); WBC 5.5 k/uL (3.8-10.6)
[2023-04-19 08:12] LABS: African American GFR (CKD) 84 (>60 ml/min/1.73 sqM); Anion Gap 6 mmol/L; Blood Urea Nitrogen 19 mg/dL (9-20); Calcium 8.5 mg/dL (8.4-10.2); Carbon Dioxide 28 mmol/L (22-30); Chloride 100 mmol/L (98-107); Glucose 113 mg/dL (74-99); Magnesium 1.9 mg/dL (1.6-2.3); Non-African American GFR(CKD) 73 (>60 ml/min/1.73 sqM); Potassium 3.4 mmol/L (3.5-5.1); Sodium 134 mmol/L (137-145)
[2023-04-19] MEDS: CYANOCOBALAMIN 500 MCG TAB PO SCH (08:52)
[2023-04-19] MEDS: PANTOPRAZOLE 40 MG TABLET PO SCH (08:52)
[2023-04-19] MEDS: APIXABAN 5 MG TAB PO SCH ×2 (08:52→19:58)
[2023-04-19] MEDS: METOPROLOL SUCCINATE (ER) 50 MG TAB.ER.24H PO SCH (08:52)
[2023-04-19] MEDS: PREGABALIN 75 MG CAP PO SCH ×2 (08:52→19:59)
[2023-04-19] MEDS: ceFAZolin 3 GM in SODIUM CHLORIDE 0.9% 100 ML IVPB SCH ×3 (08:53→23:51)
[2023-04-19] MEDS: FUROSEMIDE 40 MG TAB PO SCH (08:53)
[2023-04-19] MEDS: SYMBICORT 160-4.5 MCG INHALER INHALATION SCH ×2 (08:54→21:38)
--- NOTE | 2023-04-19 10:21 | P.PN ---
Subjective Progress Note Date: 04/19/23 67 year old M with PMH of AFib, HTN, COPD with chronic respiratory failure on 4L NC presents to the ED for fever and confusion. CBC shows Hg 12.4 and Plt 107. ESR 48. CRP 2.7. BMP shows Na 129, Cl 96, T. Bili 2, alk phos 144. UA negative for LE or nitrite. EKG AFib with incomplete RBBB and ST depression. CXR LLL infiltrate with possible small L pleural effusion. Admitted for acute metabolic encephalopathy thought to be secondary to cellulitis. CT LE confirms findings of cellulitis without abscess formation. Initially started on Vancomycin. Blood culture grew beta hemolytic step group G x 2. ID switched Vancomycin to Cefazolin. Echo obtained, showed EF 30-35% with apical hypokinesis, mild and TR, small pericardial effusion. Cardiology consulted, recommends outpatient stress test and cardiac cath. 04/19 Patient was seen and examined. No acute events overnight. Patient reports improvement in his confusion. Denies fevers. BP 117/85 P 84 RR 18 99% on RA. Repeat BCx negative at 24H. CBC shows Hg 11.9, MCV 102.2, Plt 148. BMP shows Na 134, K 3.4, glucose 113. Repeat CRP from 04/18 elevated at 18.7. Case discussed with Dr. De Luna, plans for endocarditis workup if patient remains persistently ba cteremic. General: non toxic, no distress, appears at stated age Derm: warm, dry Head: atraumatic, normocephalic, symmetric Eyes: EOMI, no lid lag, anicteric sclera Cardiovascular: Good distal perfusion in all 4 extremities Lungs: Breathing comfortably , no accessory muscle use Ext: no gross muscle atrophy, no edema, no contractures, bilateral pitting edema superimposed on lymphedema and chronic dermis stasis changes Neuro: no focal neuro deficits Psych: Alert, oriented, appropriate affect Acute metabolic encephalopathy Strep Group G Bacteremia Left Lower Extremity Cellulitis Chronic Systolic Heart Failure, EF 35% Hyponatremia Paroxysmal Atrial Fibrillation, rate controlled COPD without exacerbation Chronic Respiratory Failure requiring 4L NC HTN HLD Based on my assessment of this patient, this patient meets a high complexity level of care. Patient has an acute diagnosis of acute metabolic encephalopathy secondary to LLE cellultis and G+ bacteremia with severe exacerbation or progression of disease which poses a threat to life or bodily function. Acute metabolic encephalopathy Strep Group G Bacteremia: Continue Kefzol 3g IV TID. Follow repeat BCx. ID on board. Will need endocarditis workup if bacteremia persistent. Left Lower Extremity Cellulitis Chronic Systolic Heart Failure, EF 35%: Cardiology recommends outpatient stress test and cardiac cath. Hyponatremia: Improving. Paroxysmal Atrial Fibrillation, rate controlled: Eliquis 5 mg PO BID. Metoprolol 50 mg PO QD. COPD without exacerbation: Symbicort. DuoNeb as needed for SOB/wheezing. Chronic Respiratory Failure requiring 4L NC HTN HLD Protonix 40 mg PO QD for GI prophylaxis. Eliquis for DVT prophylaxis. FULL CODE. I have reviewed the following category consultant notes: I have reviewed the results of the following tests: CBC, BMP, BCx. I have ordered the following tests: I have discussed the care of this patient with the following independent historian: I have independently interpreted the following test below: I have discussed the management of this patient with the following physician: Dr. De Luna as above. Objective - Vital Signs Vital signs: Vital Signs Temp 97.5 F L 04/19/23 08:00 Pulse 84 04/19/23 08:00 Resp 18 04/19/23 08:00 BP 117/85 04/19/23 08:00 Pulse Ox 99 04/19/23 08:00 FiO2 Intake & Output 04/18/23 04/19/23 04/19/23 18:59 06:59 18:59 Intake Total 221 240 Output Total 400 300 275 Balance -179 -300 -35 Intake: Oral 221 240 Output: Urine 400 300 275 Other: Voiding Method Urinal Urinal Urinal # Voids 1 - Labs CBC & Chem 7: 04/19/23 07:32 04/19/23 07:32 Labs: Abnormal Lab Results - Last 24 Hours (Table) 04/18/23 04/18/23 04/19/23 Range/Units 07:30 10:39 07:32 RBC 3.54 L 3.68 L (4.30-5.90) m/uL Hgb 11.7 L 11.9 L (13.0-17.5) gm/dL Hct 35.7 L 37.6 L (39.0-53.0) % MCV 100.9 H 102.2 H (80.0-100.0) fL Plt Count 121 L 148 L (150-450) k/uL Sodium (137-145) mmol/L Potassium (3.5-5.1) mmol/L Glucose (74-99) mg/dL C-Reactive Protein 18.7 H (<1.0) mg/dL 04/19/23 Range/Units 07:32 RBC (4.30-5.90) m/uL Hgb (13.0-17.5) gm/dL Hct (39.0-53.0) % MCV (80.0-100.0) fL Plt Count (150-450) k/uL Sodium 134 L (137-145) mmol/L Potassium 3.4 L (3.5-5.1) mmol/L Glucose 113 H (74-99) mg/dL C-Reactive Protein (<1.0) mg/dL Microbiology - Last 24 Hours (Table) 04/16/23 00:49 Blood Culture Gram Stain - Final Blood Blood Culture - Final Beta Hemolytic Strep Group G 04/16/23 00:30 Blood Culture Gram Stain - Final Blood Blood Culture - Final Beta Hemolytic Strep Group G
[2023-04-19] MEDS ORDERED: POTASSIUM CHLORIDE ER 20 MEQ TAB.ER PO STA (13:53)
--- NOTE | 2023-04-19 14:03 | P.PN ---
Subjective Progress Note Date: 04/19/23 History of present illness: This is a 67-year-old male with paroxysmal atrial fibrillation, multiple wall motion abnormalities on echocardiogram and history of alcohol use. Patient has been admitted for muscle cellulitis of the lower extremities. He has been seen by Dr. 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 He is currently in atrial fibrillation heart rate is well controlled. Yesterday, metoprolol succinate was increased to 50 mg daily. Patient was advised for stress testing or cardiac catheterization as an outpatient and his plan is to follow up with his own truck jumper and [facility]. Patient was cleared for discharge home yesterday. He remains in atrial fibrillation rate is controlled. He still plans to follow up with his own truck jumper. Physical examination: VS: reviewed LUNGS: Diminished air entry. No intercostal retractions. HEART: Irregular rate and rhythm. Systolic ejection murmur at the base. ABDOMEN: Soft EXTREMITIES: No pedal edema. Diminished pulses NEUROLOGICAL: Patient is awake, alert and oriented x3. 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 Cardiology will follow on an as-needed basis. Please reconsult for any new concerns. Patient will be following up with his truck jumper in the [facility] at the time of discharge. Nurse practitioner note has been reviewed, I agree with documented findings and plan of care. Patient was seen and examined. Objective - Vital Signs Vital signs: Vital Signs Temp 97.5 F L 04/19/23 08:00 Pulse 84 04/19/23 08:00 Resp 18 04/19/23 08:00 BP 117/85 04/19/23 08:00 Pulse Ox 99 04/19/23 08:00 FiO2 Intake & Output 04/18/23 04/19/23 04/19/23 18:59 06:59 18:59 Intake Total 221 240 Output Total 400 300 275 Balance -179 -300 -35 Intake: Oral 221 240 Output: Urine 400 300 275 Other: Voiding Method Urinal Urinal Urinal # Voids 1 - Labs CBC & Chem 7: 04/19/23 07:32 04/19/23 07:32 Labs: Abnormal Lab Results - Last 24 Hours (Table) 04/18/23 04/18/23 04/19/23 Range/Units 07:30 10:39 07:32 RBC 3.54 L 3.68 L (4.30-5.90) m/uL Hgb 11.7 L 11.9 L (13.0-17.5) gm/dL Hct 35.7 L 37.6 L (39.0-53.0) % MCV 100.9 H 102.2 H (80.0-100.0) fL Plt Count 121 L 148 L (150-450) k/uL Sodium (137-145) mmol/L Potassium (3.5-5.1) mmol/L Glucose (74-99) mg/dL C-Reactive Protein 18.7 H (<1.0) mg/dL 04/19/23 Range/Units 07:32 RBC (4.30-5.90) m/uL Hgb (13.0-17.5) gm/dL Hct (39.0-53.0) % MCV (80.0-100.0) fL Plt Count (150-450) k/uL Sodium 134 L (137-145) mmol/L Potassium 3.4 L (3.5-5.1) mmol/L Glucose 113 H (74-99) mg/dL C-Reactive Protein (<1.0) mg/dL Microbiology - Last 24 Hours (Table) 04/16/23 00:49 Blood Culture Gram Stain - Final Blood Blood Culture - Final Beta Hemolytic Strep Group G 04/16/23 00:30 Blood Culture Gram Stain - Final Blood Blood Culture - Final Beta Hemolytic Strep Group G
--- NOTE | 2023-04-19 16:38 | P.PN ---
Subjective Progress Note Date: 04/19/23 Principal diagnosis: Streptococcal bacteremia left leg cellulitis Patient is a 67-year-old male with a past medical history significant for atrial fibrillation COPD hypertension hyperlipidemia did have a Charcot foot and nonhealing wound to the left foot patient presenting to [facility] ER for evaluation of mental status changes after the patient did have a fever chronic venous stasis dermatitis and a wound to the plantar aspect of the left foot, patient was noticed to be septic and did have a streptococcal bacteremia, the patient did have a CT of the left lower extremity did not show any abscess. On today's evaluation that is always points, 04/19/2023, the patient denies any fever or any chills, the patient is breathing comfortably , the patient denies chest pain or cough, the patient denies nausea and vomiting no abdominal pain and no diarrhea has been reported, the patient denies pain to the left lower extremity, redness has slightly decreased in intensity Patient did have a white count of 5.5 today, creatinine is 1.05, blood cultures with the group G strep beta hemolytic, blood cultures repeated yesterday so far negative Objective - Vital Signs Vital signs: Vital Signs Temp 97.7 F 04/19/23 11:47 Pulse 71 04/19/23 11:47 Resp 18 04/19/23 11:47 BP 127/86 04/19/23 11:47 Pulse Ox 97 04/19/23 11:47 FiO2 Intake & Output 04/18/23 04/19/23 04/19/23 18:59 06:59 18:59 Intake Total 221 240 Output Total 400 300 275 Balance -179 -300 -35 Intake: Oral 221 240 Output: Urine 400 300 275 Other: Voiding Method Urinal Urinal Urinal # Voids 1 - Exam GENERAL DESCRIPTION: An elderly male lying in bed in no distress RESPIRATORY SYSTEM: Unlabored breathing , decreased breath sounds at bases HEART: S1 S2 regular rate and rhythm , ABDOMEN: Soft , no tenderness EXTREMITIES: Left lower extremity did have some swelling dry scaly skin and redness no drainage - Labs CBC & Chem 7: 04/19/23 07:32 04/19/23 07:32 Labs: Abnormal Lab Results - Last 24 Hours (Table) 04/19/23 04/19/23 Range/Units 07:32 07:32 RBC 3.68 L (4.30-5.90) m/uL Hgb 11.9 L (13.0-17.5) gm/dL Hct 37.6 L (39.0-53.0) % MCV 102.2 H (80.0-100.0) fL Plt Count 148 L (150-450) k/uL Sodium 134 L (137-145) mmol/L Potassium 3.4 L (3.5-5.1) mmol/L Glucose 113 H (74-99) mg/dL Microbiology - Last 24 Hours (Table) 04/18/23 07:30 Blood Culture - Preliminary Blood 04/16/23 00:49 Blood Culture Gram Stain - Final Blood Blood Culture - Final Beta Hemolytic Strep Group G 04/16/23 00:30 Blood Culture Gram Stain - Final Blood Blood Culture - Final Beta Hemolytic Strep Group G Assessment and Plan (1) Cellulitis, leg Current Visit: Yes Status: Acute Code(s): L03.119 - CELLULITIS OF UNSPECIFIED PART OF LIMB SNOMED Code(s): 042557245 (2) Positive blood cultures Current Visit: Yes Status: Acute Code(s): R78.81 - BACTEREMIA SNOMED Code(s): 962005335 Plan: 1patient presented hospital with sepsis in this patient with fever tachycardia elevated lactic acid now with evidence of group G bacteremia source likely left foot wound infection and concern for possible deeper infection., Blood culture has been repeated and so far negative 2patient did have CT of the left foot and lower extremity with no evidence of any abscess 3patient to continue with cefazolin 3 g every 8 hours while waiting for repeat blood culture to be finalize will determine his discharge antibiotics this was discussed with the admitting team Dictation was produced using [employer] dictation software. please excuse any grammatical, word or spelling errors. Time with Patient: Less than 30
[2023-04-19] MEDS: DULoxetine HCL 30 MG CAPSULE.DR PO SCH (19:59)
[2023-04-19] MEDS: ATORVASTATIN 40 MG TAB PO SCH (19:59)
[2023-04-20] MEDS: oxyCODONE-APAP 10-325MG 1 EACH TAB PO PRN ×4 (03:55→21:48)
[2023-04-20] MEDS: SYMBICORT 160-4.5 MCG INHALER INHALATION SCH ×2 (08:22→21:25)
[2023-04-20] MEDS: ceFAZolin 3 GM in SODIUM CHLORIDE 0.9% 100 ML IVPB SCH ×2 (09:46→15:36)
[2023-04-20] MEDS: METOPROLOL SUCCINATE (ER) 50 MG TAB.ER.24H PO SCH (09:46)
[2023-04-20] MEDS: PANTOPRAZOLE 40 MG TABLET PO SCH (09:46)
[2023-04-20] MEDS: PREGABALIN 75 MG CAP PO SCH ×2 (09:46→20:34)
[2023-04-20] MEDS: APIXABAN 5 MG TAB PO SCH ×2 (09:46→20:34)
[2023-04-20] MEDS: CYANOCOBALAMIN 500 MCG TAB PO SCH (09:46)
[2023-04-20] MEDS: FUROSEMIDE 40 MG TAB PO SCH (09:47)
--- NOTE | 2023-04-20 11:28 | P.PN ---
Subjective Progress Note Date: 04/20/23 67 year old M with PMH of AFib, HTN, COPD with chronic respiratory failure on 4L NC presents to the ED for fever and confusion. CBC shows Hg 12.4 and Plt 107. ESR 48. CRP 2.7. BMP shows Na 129, Cl 96, T. Bili 2, alk phos 144. UA negative for LE or nitrite. EKG AFib with incomplete RBBB and ST depression. CXR LLL infiltrate with possible small L pleural effusion. Admitted for acute metabolic encephalopathy thought to be secondary to cellulitis. CT LE confirms findings of cellulitis without abscess formation. Initially started on Vancomycin. Blood culture grew beta hemolytic step group G x 2. ID switched Vancomycin to Cefazolin. Echo obtained, showed EF 30-35% with apical hypokinesis, mild and TR, small pericardial effusion. Cardiology consulted, recommends outpatient stress test and cardiac cath. 04/19 Patient was seen and examined. No acute events overnight. Patient reports improvement in his confusion. Denies fevers. BP 117/85 P 84 RR 18 99% on RA. Repeat BCx negative at 24H. CBC shows Hg 11.9, MCV 102.2, Plt 148. BMP shows Na 134, K 3.4, glucose 113. Repeat CRP from 04/18 elevated at 18.7. Case discussed with Dr. De Luna, plans for endocarditis workup if patient remains persistently ba cteremic. 04/20 Patient was seen and examined. No acute events overnight. Patient reports improvement in his confusion. Denies fevers. Repeat BCx negative at 24H. General: non toxic, no distress, appears at stated age Derm: warm, dry Head: atraumatic, normocephalic, symmetric Eyes: EOMI, no lid lag, anicteric sclera Cardiovascular: Good distal perfusion in all 4 extremities Lungs: Breathing comfortably , no accessory muscle use Ext: no gross muscle atrophy, no edema, no contractures, bilateral pitting edema superimposed on lymphedema and chronic dermis stasis changes Neuro: no focal neuro deficits Psych: Alert, oriented, appropriate affect Acute metabolic encephalopathy Sepsis Strep Group G Bacteremia Left Lower Extremity Cellulitis Chronic Systolic Heart Failure, EF 35% Hyponatremia Paroxysmal Atrial Fibrillation, rate controlled COPD without exacerbation Chronic Respiratory Failure requiring 4L NC HTN HLD Based on my assessment of this patient, this patient meets a moderate complexity level of care. Patient has an acute diagnosis of acute metabolic encephalopathy secondary to LLE cellultis and G+ bacteremia with severe exacerbation or progression of disease which poses a threat to life or bodily function. Acute metabolic encephalopathy Strep Group G Bacteremia: Continue Kefzol 3g IV TID. Follow repeat BCx. ID on board. Will need endocarditis workup if bacteremia persistent. Left Lower Extremity Cellulitis Chronic Systolic Heart Failure, EF 35%: Cardiology recommends outpatient stress test and cardiac cath. Hyponatremia: Improving. Paroxysmal Atrial Fibrillation, rate controlled: Eliquis 5 mg PO BID. Metoprolol 50 mg PO QD. COPD without exacerbation: Symbicort. DuoNeb as needed for SOB/wheezing. Chronic Respiratory Failure requiring 4L NC HTN HLD Protonix 40 mg PO QD for GI prophylaxis. Eliquis for DVT prophylaxis. FULL CODE. I have reviewed the following property consultant notes: I have reviewed the results of the following tests: BCx. I have ordered the following tests: I have discussed the care of this patient with the following independent historian: I have independently interpreted the following test below: I have discussed the management of this patient with the following physician: Objective - Vital Signs Vital signs: Vital Signs Temp 97.7 F 04/20/23 08:00 Pulse 70 04/20/23 08:00 Resp 20 04/20/23 08:00 BP 152/99 04/20/23 08:00 Pulse Ox 95 04/20/23 08:00 FiO2 Intake & Output 04/19/23 04/20/23 04/20/23 18:59 06:59 18:59 Intake Total 881 358 Output Total 275 250 225 Balance 606 -250 133 Intake: Oral 881 358 Output: Urine 275 250 225 Other: Voiding Method Urinal Urinal Urinal # Voids 2 - Labs CBC & Chem 7: 04/19/23 07:32 04/19/23 07:32 Labs: Microbiology - Last 24 Hours (Table) 04/18/23 07:30 Blood Culture - Preliminary Blood
[2023-04-20] MEDS: DULoxetine HCL 30 MG CAPSULE.DR PO SCH (20:34)
[2023-04-20] MEDS: ATORVASTATIN 40 MG TAB PO SCH (20:34)
[2023-04-21] MEDS: ceFAZolin 3 GM in SODIUM CHLORIDE 0.9% 100 ML IVPB SCH ×2 (03:00→08:12)
[2023-04-21] MEDS: oxyCODONE-APAP 10-325MG 1 EACH TAB PO PRN ×2 (04:51→12:05)
--- NOTE | 2023-04-21 06:57 | P.PN ---
Subjective Progress Note Date: 04/20/23 Principal diagnosis: Streptococcal bacteremia left leg cellulitis Patient is a 67-year-old male with a past medical history significant for atrial fibrillation COPD hypertension hyperlipidemia did have a Charcot foot and nonhealing wound to the left foot patient presenting to [facility] ER for evaluation of mental status changes after the patient did have a fever chronic venous stasis dermatitis and a wound to the plantar aspect of the left foot, patient was noticed to be septic and did have a streptococcal bacteremia, the patient did have a CT of the left lower extremity did not show any abscess. On today's evaluation that is 04/20/2023, the patient denies having any fever or any chills, the patient is breathing comfortably, the patient denies having any chest pain shortness of breath or cough no nausea vomiting no abdominal pain or diarrhea, the patient left lower extremity swelling redness has improved and there is no drainage patient did have a white count of 5.5 creatinine 1.0 5 repeat blood cultures 04/18/2023 negative so far. Objective - Vital Signs Vital signs: Vital Signs Temp 98.3 F 04/20/23 12:00 Pulse 70 04/20/23 12:00 Resp 18 04/20/23 12:00 BP 134/87 04/20/23 12:00 Pulse Ox 97 04/20/23 12:00 FiO2 Intake & Output 04/19/23 04/20/23 04/20/23 18:59 06:59 18:59 Intake Total 881 358 Output Total 275 250 225 Balance 606 -250 133 Intake: Oral 881 358 Output: Urine 275 250 225 Other: Voiding Method Urinal Urinal Urinal # Voids 2 - Exam GENERAL DESCRIPTION: An elderly male lying in bed in no distress RESPIRATORY SYSTEM: Unlabored breathing , decreased breath sounds at bases HEART: S1 S2 regular rate and rhythm , ABDOMEN: Soft , no tenderness EXTREMITIES: Left lower extremity did have some swelling dry scaly skin and redness no drainage - Labs CBC & Chem 7: 04/19/23 07:32 04/19/23 07:32 Labs: Microbiology - Last 24 Hours (Table) 04/18/23 07:30 Blood Culture - Preliminary Blood Assessment and Plan (1) Cellulitis, leg Current Visit: Yes Status: Acute Code(s): L03.119 - CELLULITIS OF UNSPECIFIED PART OF LIMB SNOMED Code(s): 108739334 (2) Positive blood cultures Current Visit: Yes Status: Acute Code(s): R78.81 - BACTEREMIA SNOMED Code(s): 736720397 Plan: 1patient presented hospital with sepsis in this patient with fever tachycardia elevated lactic acid now with evidence of group G bacteremia source likely left foot wound infection and concern for possible deeper infection., Blood culture has been repeated and so far negative 2patient did have CT of the left foot and lower extremity with no evidence of any abscess 3patient seem to have shown clinical improvement repeat blood culture has been negative so far patient mention not ready to go home today we will culture the patient on cefazolin for another 24 hours and transition to oral Keflex hopefully in the a.m. on discharge for 10 days this was discussed with the admitting physician Dictation was produced using [employer] dictation software. please excuse any grammatical, word or spelling errors.
[2023-04-21] MEDS: SYMBICORT 160-4.5 MCG INHALER INHALATION SCH (07:43)
[2023-04-21] MEDS: PREGABALIN 75 MG CAP PO SCH (08:12)
[2023-04-21] MEDS: METOPROLOL SUCCINATE (ER) 50 MG TAB.ER.24H PO SCH (08:13)
[2023-04-21] MEDS: PANTOPRAZOLE 40 MG TABLET PO SCH (08:13)
[2023-04-21] MEDS: CYANOCOBALAMIN 500 MCG TAB PO SCH (08:13)
[2023-04-21] MEDS: APIXABAN 5 MG TAB PO SCH (08:13)
[2023-04-21] MEDS: FUROSEMIDE 40 MG TAB PO SCH (08:14)
--- NOTE | 2023-04-21 13:47 | P.DS ---
Providers Date of admission: 04/16/23 03:39 Expected date of discharge: 04/21/23 Attending physician: Melissa Moore MD Consults: 04/16/23 19:36 Consult Physician Routine Consulting Provider: Jose Antonio Serra Consult Reason/Comments: LVEF 30% unknown if new, fatigue Do you want consulting provider notified?: Yes 04/17/23 09:11 Consult Physician Routine Consulting Provider: Saul De Luna Consult Reason/Comments: gp bacteremia Do you want consulting provider notified?: Yes Primary care physician: [facility] Course: 67 year old M with PMH of AFib, HTN, COPD with chronic respiratory failure on 4L NC presents to the ED for fever and confusion. CBC shows Hg 12.4 and Plt 107. ESR 48. CRP 2.7. BMP shows Na 129, Cl 96, T. Bili 2, alk phos 144. UA negative for LE or nitrite. EKG AFib with incomplete RBBB and ST depression. CXR LLL infiltrate with possible small L pleural effusion. Admitted for acute metabolic encephalopathy thought to be secondary to cellulitis. CT LE confirms findings of cellulitis without abscess formation. Initially started on Vancomycin. Blood culture grew beta hemolytic step group G x 2. ID switched Vancomycin to Cefazolin. Echo obtained, showed EF 30-35% with apical hypokinesis, mild and TR, small pericardial effusion. Cardiology consulted, recommends outpatient stress test and cardiac cath. 04/19 Patient was seen and examined. No acute events overnight. Patient reports improvement in his confusion. Denies fevers. BP 117/85 P 84 RR 18 99% on RA. Repeat BCx negative at 24H. CBC shows Hg 11.9, MCV 102.2, Plt 148. BMP shows Na 134, K 3.4, glucose 113. Repeat CRP from 04/18 elevated at 18.7. Case discussed with Dr. De Luna, plans for endocarditis workup if patient remains persistently bacteremic. 04/20 Patient was seen and examined. No acute events overnight. Patient reports improvement in his confusion. Denies fevers. Repeat BCx negative at 24H. 04/21 Patient was seen and examined. Repeat blood culture negative at 48H. Discussed with Dr. De Luna, plans to discharge home on Keflex 500 mg PO Q6H x 10 days. Pertinent studies include CXR, Echocardiogram, CT LE. General: non toxic, no distress, appears at stated age Derm: warm, dry Head: atraumatic, normocephalic, symmetric Eyes: EOMI, no lid lag, anicteric sclera Cardiovascular: Good distal perfusion in all 4 extremities, Normal S1 S2 Lungs: Breathing comfortably , no accessory muscle use, CTA BL Ext: no gross muscle atrophy, no edema, no contractures, bilateral pitting edema superimposed on lymphedema and chronic dermis stasis changes Neuro: no focal neuro deficits Psych: Alert, oriented, appropriate affect Discharge Diagnosis: Acute metabolic encephalopathy Sepsis Strep Group G Bacteremia Left Lower Extremity Cellulitis Chronic Systolic Heart Failure, EF 35% Hyponatremia Paroxysmal Atrial Fibrillation, rate controlled COPD without exacerbation Chronic Respiratory Failure requiring 4L NC HTN HLD This complex discharge took 35 minutes. Patient Condition at Discharge: Stable Plan - Discharge Summary Discharge Rx Participant: Yes New Discharge Prescriptions: New Metoprolol Succinate (ER) [Toprol XL] 50 mg PO DAILY #30 tab Cephalexin [Keflex] 500 mg PO Q6HR 10 Days #40 cap Continue EPINEPHrine (Auto Inject) [Epipen] 0.3 mg IM ONCE PRN PRN Reason: Anaphylaxis DULoxetine HCL [Cymbalta] 30 mg PO HS oxyCODONE-APAP 10-325MG [Percocet 10-325 mg] 1 tab PO QID Pregabalin [Lyrica] 150 mg PO BID Furosemide [Lasix] 40 mg PO DAILY Apixaban [Eliquis] 5 mg PO BID Pantoprazole [Protonix] 40 mg PO DAILY Metoprolol Succinate (ER) [Toprol XL] 25 mg PO DAILY Atorvastatin [Lipitor] 40 mg PO HS Vitamin B-12(Unknown Dose) 1 tab PO DAILY Discharge Medication List Apixaban [Eliquis] 5 mg PO BID 04/16/23 [History] Atorvastatin [Lipitor] 40 mg PO HS 04/16/23 [History] DULoxetine HCL [Cymbalta] 30 mg PO HS 04/16/23 [History] EPINEPHrine (Auto Inject) [Epipen] 0.3 mg IM ONCE PRN 04/16/23 [History] Furosemide [Lasix] 40 mg PO DAILY 04/16/23 [History] Metoprolol Succinate (ER) [Toprol XL] 25 mg PO DAILY 04/16/23 [History] Pantoprazole [Protonix] 40 mg PO DAILY 04/16/23 [History] Pregabalin [Lyrica] 150 mg PO BID 04/16/23 [History] Vitamin B-12(Unknown Dose) 1 tab PO DAILY 04/16/23 [History] oxyCODONE-APAP 10-325MG [Percocet 10-325 mg] 1 tab PO QID 04/16/23 [History] Cephalexin [Keflex] 500 mg PO Q6HR 10 Days #40 cap 04/21/23 [Rx] Metoprolol Succinate (ER) [Toprol XL] 50 mg PO DAILY #30 tab 04/21/23 [Rx] Follow up Appointment(s)/Referral(s): Saul De Luna MD [STAFF PHYSICIAN] - 04/27/23 4:00 pm Aysha Ghosh MD [Primary Care Provider] - 04/22/23 1:30 pm Patient Instructions/Handouts: Cellulitis (GEN), Sepsis (DC) Discharge Disposition: HOME SELF-CARE
--- NOTE | 2023-04-21 14:42 | P.PN ---
Subjective Progress Note Date: 04/21/23 Principal diagnosis: Streptococcal bacteremia left leg cellulitis Patient is a 67-year-old male with a past medical history significant for atrial fibrillation COPD hypertension hyperlipidemia did have a Charcot foot and nonhealing wound to the left foot patient presenting to [facility] ER for evaluation of mental status changes after the patient did have a fever chronic venous stasis dermatitis and a wound to the plantar aspect of the left foot, patient was noticed to be septic and did have a streptococcal bacteremia, the patient did have a CT of the left lower extremity did not show any abscess. On today's evaluation that is 04/21/2023, the patient is afebrile, the patient is breathing comfortably , the patient denies chest pain and no significant co ugh, the patient denies nausea and vomiting no abdominal pain and no diarrhea,, the patient left lower extremity swelling redness has improved and at the patient denies having any drainage patient did have a white count of 5.5 creatinine 1.0 5 as of 04/19/2023, repeat blood cultures 04/18/2023 negative so far. Objective - Vital Signs Vital signs: Vital Signs Temp 97.5 F L 04/21/23 07:45 Pulse 76 04/21/23 07:45 Resp 20 04/21/23 07:45 BP 150/87 04/21/23 07:45 Pulse Ox 99 04/21/23 07:45 FiO2 Intake & Output 04/20/23 04/21/23 04/21/23 18:59 06:59 18:59 Intake Total 598 110 Output Total 475 250 400 Balance 123 -250 -290 Intake: Oral 598 110 Output: Urine 475 250 400 Other: Voiding Method Urinal Urinal # Voids 2 - Exam GENERAL DESCRIPTION: An elderly male lying in bed in no distress RESPIRATORY SYSTEM: Unlabored breathing , decreased breath sounds at bases HEART: S1 S2 regular rate and rhythm , ABDOMEN: Soft , no tenderness EXTREMITIES: Left lower extremity did have some swelling dry scaly skin and redness no drainage - Labs CBC & Chem 7: 04/19/23 07:32 04/19/23 07:32 Labs: Microbiology - Last 24 Hours (Table) 04/18/23 07:30 Blood Culture - Preliminary Blood Assessment and Plan (1) Cellulitis, leg Status: Acute Code(s): L03.119 - CELLULITIS OF UNSPECIFIED PART OF LIMB SNOMED Code(s): 481087242 (2) Positive blood cultures Status: Acute Code(s): R78.81 - BACTEREMIA SNOMED Code(s): 378224382 Plan: 1patient presented hospital with sepsis in this patient with fever tachycardia elevated lactic acid now with evidence of group G bacteremia source likely left foot wound infection and concern for possible deeper infection., Blood culture has been repeated and so far negative 2patient did have CT of the left foot and lower extremity with no evidence of any abscess 3patient seem to have shown clinical improvement repeat blood culture has been negative so far patient received about 6 days of IV antibiotic therapy and no evidence of any deep infection on the base of the CT and clinical findings will finish therapy with oral Keflex 500 mg by mouth every 6 hours for 10 days prescription was sent to the pharmacy discussed with the admitting team Dictation was produced using [employer] dictation software. please excuse any grammatical, word or spelling errors. Time with Patient: Less than 30
[2023-04-21 15:44] VITALS: BP 150/87; PULSE 76; TEMP 97.5
[2023-04-21 15:57] VITALS: RESP 20
--- NOTE | 2023-04-22 12:33 | CDI ---
Documentation Clarification Form Date: 04/22/2023 12:17:12 PM From: Erin Richards Phone: Admit Date: 04/16/2023 03:39:00 AM Patient Name: Catrachito Harrell Visit Number: [id number] Discharge Date: 04/21/2023 02:02:00 PM ATTENTION: The Clinical Documentation Specialists (CDI) and [facility] Coding Staff appreciate your assistance in clarifying documentation. Please respond to the clarification below the line at the bottom and electronically sign. The CDI & [facility] Coding staff will review the response and follow-up if needed. Please note: Queries are made part of the Legal Health Record. If you have any questions, please contact the author of this message via ITS. Dr. Gianluca Humphries There is documentation of here is an area ofulcerationon the left posterior calf which is weeping per ED Note. Additional specificity regarding the etiology and severity of the wound is requested. Patient history/risk factors: 67yo M, Acutemetabolic encephalopathy, Charcotfoot, ACSHF, StrepGroup Gsepsis, LLE Cellulitis, ACSHF, Hyponatremia, PAF, COPD, CRF on O2, HTN, HLD, woundto the Lt plantar, venous stasis/derm Clinical Indicators: Wound assessment: Extremities are malodorous. Patient does have less than 3 second cap refill); venous stasisdermatitis Treatment: Blood culture has been repeated and so farnegative. Patient did haveCTof the left foot and lower extremitywith no evidence of anyabscess. Patient seem to have shown clinical improvement repeat blood culture has been negative so far patient received about 6 days of IV antibiotictherapyandno evidence of anydeepinfectionon the base of theCTand clinical findings will finishtherapywith oral Keflex 500 mg by mouth every 6 hours for 10 days prescription was sent to the pharmacy discussed with the admitting team Please clarify the etiology and severity of the wound: Etiology: [ ] Non-pressure chronic ulcer due to arterial insufficiency [ x] Non-pressure chronic ulcer due to venous insufficiency [ ] Non-pressure chronic ulcer due to trauma [ ] Other, Please specify [ ] Unable to determine Severity: [ x ] Limited to breakdown of skin [ ] With fat layer exposed [ ] Other, Please specify [ ] Unable to determine (Template Last Revised: October 2020) MTDD
== END 2023-04-21 14:02 | disposition home or self-care (01) | DRG 871 ==
LOC: EC 00:09 → 5NMEDONC 03:39 → 4SSUR 03:49 → 3SCARD 15:15
PROVIDERS: ADMIT Internal Medicine; ATTEND Internal Medicine
DX: A40.9 Streptococcal sepsis, unspecified (principal); G93.41 Metabolic encephalopathy; I50.23 Acute on chronic systolic (congestive) heart failure; J96.11 Chronic respiratory failure with hypoxia; I83.222 Varicose veins of left lower extremity with both ulcer of calf and inflammation; L97.221 Non-pressure chronic ulcer of left calf limited to breakdown of skin; I31.39 Other pericardial effusion (noninflammatory); E87.20 Acidosis, unspecified; E87.1 Hypo-osmolality and hyponatremia; L03.115 Cellulitis of right lower limb; L03.116 Cellulitis of left lower limb; L97.529 Non-pressure chronic ulcer of other part of left foot with unspecified severity; I11.0 Hypertensive heart disease with heart failure; J44.9 Chronic obstructive pulmonary disease, unspecified; I48.0 Paroxysmal atrial fibrillation; F10.10 Alcohol abuse, uncomplicated; I35.0 Nonrheumatic aortic (valve) stenosis; E78.5 Hyperlipidemia, unspecified; M14.672 Charcot's joint, left ankle and foot; I89.0 Lymphedema, not elsewhere classified; I45.10 Unspecified right bundle-branch block; B95.4 Other streptococcus as the cause of diseases classified elsewhere; Z99.81 Dependence on supplemental oxygen; Z79.891 Long term (current) use of opiate analgesic; Z79.01 Long term (current) use of anticoagulants; Z86.14 Personal history of Methicillin resistant Staphylococcus aureus infection; Z91.030 Bee allergy status; Z88.5 Allergy status to narcotic agent; Z79.899 Other long term (current) drug therapy; Z88.8 Allergy status to other drugs, medicaments and biological substances
CPT/HCPCS: 36415; 71046; 80048; 80053; 81001; 83605; 83735; 85025; 85652; 86140; 87040; 87077; 87186; 93306; 94640; 94760; 96361; 96365; 96366; 96367; 99285